=== PATIENT | female | born 1935 | race Caucasian/White ===

== ENCOUNTER → 2017-03-17 | Outpatient (CLI) | payer MEDICARE, OTHER ==
--- NOTE | 2017-03-17 13:12 | RADIOLOGY REPORT (SQ) ---
EXAM DESCRIPTION: SHOULDER RIGHT 2 OR MORE VIEWS COMPLETED DATE/TIME: 03/17/2017 1:04 pm REASON FOR STUDY: PAIN IN RIGHT SHOULDER M25.511 PAIN IN RIGHT SHOULDER COMPARISON: None. NUMBER OF VIEWS: Three views. TECHNIQUE: Internal rotation, external rotation, and Y view images acquired of the right shoulder. LIMITATIONS: None. FINDINGS: MINERALIZATION: Normal. BONES: No acute fracture or dislocation. No worrisome bone lesions. JOINTS: There is soft tissue calcifications around the acromioclavicular joint. VISUALIZED LUNGS AND RIBS: No pneumothorax. No rib fracture. SOFT TISSUES: No radiopaque foreign body. OTHER: No other significant finding. 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 TECHNICAL DOCUMENTATION: JOB ID: [id number] [employer]- All Rights Reserved
== END ==
LOC: OD 12:53
PROVIDERS: ATTEND Physician Assistant
DX: M25.511 Pain in right shoulder (principal)

== ENCOUNTER → 2017-04-01 | Outpatient (CLI) | payer MEDICARE, OTHER ==
--- NOTE | 2017-04-01 14:04 | WOMENS IMAGING REPORT ---
EXAM DESCRIPTION: BONE DENSITY HIP/SPINE COMPLETED DATE/TIME: 04/01/2017 10:20 am REASON FOR STUDY: SCREENING MAMMO; OSTEOPOROSIS Z12.31 ENCNTR SCREEN MAMMOGRAM FOR MALIGNANT NEOPLA SM OF [place]IL[place] M81.0 AGE-RELATED OSTEOPOROSIS W/O CURRENT PATHOLOGICAL FRAC COMPARISON: None. TECHNIQUE: Dual-Energy X-ray Absorptiometry (DEXA) of the AP Spine and Hip. LIMITATIONS: None. FINDINGS: LUMBAR SPINE: The bone mineral density (BMD) measured from L1-L4 in the AP projection correlates with a T-score of 1.5, which is normal as defined by the World Health Organization. HIP: The bone mineral density (BMD) measured in the left hip correlates with a T-score of -0.9 in the femo ral neck, which is normal as defined by the World Health Organization. IMPRESSION: 1. LUMBAR SPINE: Normal 2. HIP: Normal COMMENT: The World Health Organization defines low BMD as follows: T-score: Normal: Greater than -1.0 Osteopenia: Between -1.0 and -2.5 Osteoporosis: Less than -2.5 without fractures Established osteoporosis: Less than -2.5 with fractures In general, you may wish to consider: Diagnosis Treatment Follow-up DEXA Normal BMD Prevention 2-3 years Osteopenia Prevention/Therapy 1-2 years Osteoporosis Therapy Yearly TECHNICAL DOCUMENTATION: JOB ID: [id number]- All Rights Reserved
--- NOTE | 2017-04-02 13:53 | WOMENS IMAGING REPORT ---
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 LIMITATIONS: None. FINDINGS: Findings present which are benign by mammographic criteria. No suspicious masses, calcifi cations or architectural distortion. Pertinent benign findings: Coarse dense benign appearing calcifications bilaterally. Read with the assistance of CAD. .[facility] - R2 Cenova Version 1.3 .[facility] Imaging - R2 Cenova Version 1.3 .[facility] Imaging - R2 Cenova Version 2.4 .[facility] [place] [place] - R2 Cenova Version 2.4 .[facility] - R2 [employer] Mechanic Version 9.2 Benign mammographic findings may include one or more of the following: Smooth masses, popcorn/rim/co arse calcifications, asymmetries, post-procedure changes, and lesions with long-standing stability. IMPRESSION: BENIGN MAMMOGRAPHIC FINDINGS. BIRADS 2 BREAST DENSITY: d. The breasts are extremely dense, which lowers the sensitivity of mammography. BIRAD: 2 BENIGN FINDING(S) RECOMMENDATION: RECOMMENDATION: ROUTINE SCREENING Please continue yearly bilateral screening tomosynthesis in March 2018 COMMENT: The patient has been notified of the results by letter per SA requirements. Additional no tification policies are in place for contacting patient with suspicious or incomplete findings. Quality ID #[id number]: The [employer] recommends an annual screening mammogram for women aged 40 years or over. This facility utilizes a reminder system to ensure that all patients receive reminder letters, and/or direct phone calls for appointments. This includes reminders for routine scr eening mammograms, diagnostic mammograms, or other Breast Imaging Interventions when appropriate. Th is patient will be placed in the appropriate reminder system. The [employer] (ACR) has developed recommendations for screening MRI of the breast s in certain patient populations, to be used in conjunction with mammography. Breast MRI surveillanc e may be appropriate for women with more than 20% lifetime risk of developing breast cancer as deter mined by genetic testing, significant family history of the disease, or history of mantle radiation f or Hodgkins Disease. ACR Practice Guidelines 2008. DBT Technology DBT is a type of tomographic mammography. With conventional mammography, overlapping breast tissue ma y make lesions difficult to detect, even with good compression. DBT uses an x-ray tube that rotates a round the breast, taking images at different angles. These images are then combined to create thin sl ices of the breast that the radiologist can view as a 3D reconstruction. The [employer] unit can perform full-field digital mammograms (2D imaging); or DBT (3D imaging); or both, in a combination mode that quickly performs both the mammogram and the tomosynthesis scan while the breast is still compressed. PQRS 6045F: Fluoroscopic imaging is not utilized for breast tomosynthesis. TECHNICAL DOCUMENTATION: FINDING NUMBER: (1) ASSESSMENT: (1) JOB ID: [id number] [employer]- All Rights Reserved
== END ==
LOC: WI 08:59
PROVIDERS: ATTEND Physician Assistant
DX: Z12.31 Encounter for screening mammogram for malignant neoplasm of breast (principal); M81.0 Age-related osteoporosis without current pathological fracture
CPT/HCPCS: 77063; 77080; G0202; 77067

== ENCOUNTER 2017-04-23 13:52 | Emergency (ER) | payer MEDICARE, OTHER ==
[2017-04-23 14:23] VITALS: BP 153/107
--- NOTE | 2017-04-23 14:30 | ER Document Report ---
ED Neuro Symptoms/Deficit <IVELISSE PACKER - Last Filed: 04/23/17 15:32> - General Mode of Arrival: Ambulatory Information source: Patient TRAVEL OUTSIDE OF THE [place] IN LAST 30 DAYS: No <ARMINMEAGAN - Last Filed: 04/23/17 15:56> - General Chief Complaint: Numbness Stated Complaint: NUMBNESS Time Seen by Provider: 04/23/17 14:18 Notes: Patient is an 81-year-old female who presents to the emergency department today with complaints of "numbness all over". Patient states that she also has numbness around her mouth. Patient states her symptoms have been occurring for the last 1.5 hours. Patient states she had a prior CVA in 1996 and her symptoms today are similar to those. Patient denies any unilateral weakness, difficulty with speech, or urinary symptoms. Patient states she has a slight headache with associated nausea and diarrhea. (MEAGAN FUNEZ) - Related Data Allergies/Adverse Reactions: iodine [Iodine] Allergy (Intermediate, Verified 04/23/17 14:22) RASH Penicillins Allergy (Verified 04/23/17 14:22) hands itching, rash atorvastatin calcium [From Lipitor] Adverse Reaction (Intermediate, Verified 14:22) MUSCLE SPASMS morphine [Morphine] Adverse Reaction (Intermediate, Verified 04/23/17 14:22) FEELS LIKE DYING Home Medications: Current Home Medications Ferrous Sulfate 325 mg PO QHS 04/23/17 [History] Levothyroxine Sodium 25 mcg PO QAM 04/23/17 [History] Past Medical History - General Information source: Patient - Social History Smoking Status: Unknown if Ever Smoked Cigarette use (# per day): No Frequency of alcohol use: None Drug Abuse: None Lives with: Family Family History: Reviewed & Not Pertinent - Past Medical History Cardiac Medical History: Reports: Hx Atrial Fibrillation, Hx Coronary Artery Disease - STENT PLACED X5, Hx Heart Attack - X5, Hx Hypercholesterolemia, Hx Hypertension Pulmonary Medical History: Reports: Hx Pneumonia - 5-6 YEARS AGO, Hx Sleep Apnea Neurological Medical History: Reports: Hx Cerebrovascular Accident Endocrine Medical History: Reports: Hx Diabetes Mellitus Type 2 GI Medical History: Reports: Hx Gastroesophageal Reflux Disease, Hx Hiatal Hernia Musculoskeltal Medical History: Reports Hx Arthritis, Reports Hx Muscle Weakness - cramps Past Surgical History: Reports: Hx Appendectomy, Hx Cardiac Catheterization - stent in circumflex, Hx Cholecystectomy, Hx Herniorrhaphy, Hx Hysterectomy, Hx Orthopedic Surgery - carpal tunnel - Immunizations Immunizations up to date: Yes Hx Diphtheria, Pertussis, Tetanus Vaccination: No - unknown Hx Pneumococcal Vaccination: 08/04/08 <MEAGAN FUNEZ - Last Filed: 04/23/17 15:56> Review of Systems - Review of Systems Constitutional: See HPI, Weakness - generalized EENT: No symptoms reported Cardiovascular: No symptoms reported Respiratory: No symptoms reported Gastrointestinal: See HPI, Diarrhea, Nausea Genitourinary: No symptoms reported Female Genitourinary: No symptoms reported Musculoskeletal: No symptoms reported Skin: No symptoms reported Hematologic/Lymphatic: No symptoms reported Neurological/Psychological: See HPI, Headaches, Numbness - all over <MEAGAN FUNEZ - Last Filed: 04/23/17 15:56> Physical Exam <IVELISSE PACKER - Last Filed: 04/23/17 15:32> - Neurological Neuro grossly intact: Yes Cognition: Normal Orientation: AAOx4 Aldrich Coma Scale Eye Opening: Spontaneous Anthony Coma Scale Verbal: Oriented Anthony Coma Scale Motor: Obeys Commands Aldrich Coma Scale Total: 15 Speech: Normal Cranial nerves: Normal Cerebellar coordination: Normal Motor strength normal: LUE, RUE, LLE, RLE Additional motor exam normals: No: Pronator drift, Weakness Sensory: Normal <MEAGAN FUNEZ - Last Filed: 04/23/17 15:56> - Vital signs Vitals: Pulse Resp BP Pulse Ox 88 18 153/107 H 96 04/23/17 13:54 04/23/17 13:54 04/23/17 13:54 04/23/17 13:54 - Notes Notes: Physical Exam: General: Alert, appears well. HEENT: Normocephalic. Atraumatic. PERRL. Extraocular movements intact. Oropharynx clear. No carotid bruits. Neck: Supple. Non-tender. Respiratory: No respiratory distress. Clear and equal breath sounds bilaterally. Cardiovascular: Irregularly irregular, rate controlled, systolic murmur noted. Abdominal: Normal Inspection. Non-tender. No distension. Normal Bowel Sounds. Back: Non-tender. No deformity or step off. Extremities: Moves all four extremities. Upper extremities: Normal inspection. Normal ROM. Lower extremities: Normal inspection. No edema. Normal ROM. Neurological: Cranial Nerves II-XII grossly intact bilaterally. Finger-to- nose intact. Normal cognition. AAOx4. Normal speech. Psychological: Normal affect. Normal Mood. Skin: Warm. Dry. Normal color. (MEAGAN FUNEZ) Course - Laboratory Result Diagrams: 04/23/17 14:10 04/23/17 14:10 - Diagnostic Test Radiology reviewed: Image reviewed, Reports reviewed - Chest x-ray and CT without acute abnormality. There are chronic microvascular changes. - EKG Interpretation by Me Rhythm: A.Fib - 83, atrial fibrillation with controlled rate. No clear ischemia. QRS of normal duration. <IVELISSE PACKER - Last Filed: 04/23/17 15:32> - Laboratory Result Diagrams: 04/23/17 14:10 04/23/17 14:10 <MEAGAN FUNEZ - Last Filed: 04/23/17 15:56> - Re-evaluation Re-evalutation: 04/23/17 15:12 Patient is in atrial fibrillation. She is anticoagulated with Coumadin but has a subtherapeutic INR. 04/23/17 15:32 Patient states she is feeling fine and anxious to go home. She had had her Coumadin cut back from the normal 7.5 and 10.5 alteration, she will increase back to 10 mg tonight. She does a weekly INR at home and [place] adjust her Coumadin accordingly. Clinically I do not see evidence of stroke. She understands follow-up needs as well as warning signs to watch for. (IVELISSE PACKER) - Vital Signs Vital signs: Temp Pulse Resp BP Pulse Ox 98.5 F 88 18 153/107 H 97 04/23/17 13:58 04/23/17 13:58 04/23/17 14:16 04/23/17 13:58 04/23/17 14:16 - Laboratory Laboratory results interpreted by me: 04/23/17 04/23/17 14:10 14:10 PT 20.4 H Glucose 158 H Discharge <IVELISSE PACKER - Last Filed: 04/23/17 15:32> <MEAGAN FUNEZ - Last Filed: 04/23/17 15:56> - Discharge Clinical Impression: Paresthesia Condition: Good Disposition: HOME, SELF-CARE Additional Instructions: Return for any problem or concern. Take your Coumadin 10.5 mg tonight as scheduled. Contact your physician tomorrow with your INR for further adjustments. The PT INR was 1.64 here today. Scribe Documentation - Scribe Written by Iram:: Iram Alvarez, 04/23/2017 1555 acting as scribe for :: Remy <MEAGAN FUNEZ - Last Filed: 04/23/17 15:56>
[2017-04-23 14:47] LABS: ABSOLUTE EOSINOPHILS # (AUTO) 0.2 10^3/uL (0.0-0.6); ABSOLUTE LYMPHOCYTES (AUTO) 1.6 10^3/uL (0.5-4.7); ABSOLUTE MONOCYTES (AUTO) 0.6 10^3/uL (0.1-1.4); ABSOLUTE NEUT (AUTO) 3.4 10^3/uL (1.7-8.2); BASOPHILS % (AUTO) 0.6 % (0-2); EOSINOPHILS % (AUTO) 3.2 % (0-6); HEMATOCRIT 42.5 % (36.0-47.0); HEMOGLOBIN 14.7 g/dL (12.0-15.5); HGB HCT DIFFERENCE 1.6; LYMPHOCYTES % (AUTO) 27.7 % (13-45); MEAN CORPUSCULAR HEMOGLOBIN 31.9 pg (27.0-33.4); MEAN CORPUSCULAR HGB CONC 34.6 g/dL (32.0-36.0); MEAN CORPUSCULAR VOLUME 92 fl (80-97); MONOCYTES % (AUTO) 10.5 % (3-13); RED CELL DISTRIBUTION WIDTH 13.8 % (11.5-14.0); WHITE BLOOD COUNT 5.9 10^3/uL (4.0-10.5)
[2017-04-23 14:49] LABS: PROTHROMBIN TIME 20.4 SEC (11.4-15.4)
[2017-04-23 14:51] LABS: ALANINE AMINOTRANSFERASE 26 U/L (9-52); ALBUMIN 4.7 g/dL (3.5-5.0); ALKALINE PHOSPHATASE 70 U/L (38-126); ANION GAP 14 (5-19); ASPARTATE AMINO TRANSFERASE 29 U/L (14-36); BILIRUBIN,DIRECT 0.4 mg/dL (0.0-0.4); BILIRUBIN,TOTAL 0.7 mg/dL (0.2-1.3); BLOOD UREA NITROGEN 13 mg/dL (7-20); CALCIUM 9.8 mg/dL (8.4-10.2); CARBON DIOXIDE 29 mmol/L (22-30); CHLORIDE 101 mmol/L (98-107); CREATININE RESULT 0.82 mg/dL (0.52-1.25); GLUCOSE 158 mg/dL (75-110); POTASSIUM 4.1 mmol/L (3.6-5.0); SODIUM 143.5 mmol/L (137-145); TOTAL PROTEIN 7.9 g/dL (6.3-8.2)
--- NOTE | 2017-04-23 14:56 | RADIOLOGY REPORT (SQ) ---
EXAM DESCRIPTION: CT HEAD WITHOUT COMPLETED DATE/TIME: 04/23/2017 2:44 pm REASON FOR STUDY: Headache COMPARISON: March 2016 TECHNIQUE: Axial images acquired through the brain without intravenous contrast. Images reviewed wi th bone, brain and subdural windows. Images stored on PACS. All CT scanners at this facility use dose modulation, iterative reconstruction, and/or weight based d osing when appropriate to reduce radiation dose to as low as reasonably achievable (ALARA). [facility]: Dose Right [facility]: CareDose [facility]: Dose Right [facility]: Teradose 4D [facility]: Exhale Fans RADIATION DOSE: Up-to-date CT equipment and radiation dose reduction techniques were employed. CTDIv ol: 64.6 mGy. DLP: 1163 mGy-cm. mGy. LIMITATIONS: None. FINDINGS: VENTRICLES: Prominent. CEREBRUM: No masses. No hemorrhage. No midline shift. Areas of low density in the white matter mos t likely due to chronic micro-vascular ischemic change. No evidence for acute infarction. CEREBELLUM: No masses. No hemorrhage. No alteration of density. No evidence for acute infarction. EXTRAAXIAL SPACES: Mild age-related involutional change. No fluid collections. No masses. ORBITS AND GLOBE: No intra- or extraconal masses. Normal contour of globe without masses. CALVARIUM: No fracture. PARANASAL SINUSES: No fluid or mucosal thickening. SOFT TISSUES: No mass or hematoma. OTHER: No other significant finding. IMPRESSION: MILD CHRONIC CHANGES OF ATROPHY AND MICROVASCULAR ISCHEMIA. NO ACUTE PROCESS. EVIDENCE OF ACUTE STROKE: NO. TECHNICAL DOCUMENTATION: JOB ID: [id number] Quality ID # [id number]: Final reports with documentation of one or more dose reduction techniques (e.g., Au tomated exposure control, adjustment of the mA and/or kV according to patient size, use of iterative reconstruction technique) 2010 [employer]- All Rights Reserved
--- NOTE | 2017-04-23 14:58 | RADIOLOGY REPORT (SQ) ---
EXAM DESCRIPTION: CHEST SINGLE VIEW COMPLETED DATE/TIME: 04/23/2017 2:45 pm REASON FOR STUDY: weakness COMPARISON: February 2016 EXAM PARAMETERS: NUMBER OF VIEWS: One view. TECHNIQUE: Single frontal radiographic view of the chest acquired. RADIATION DOSE: NA LIMITATIONS: None. FINDINGS: LUNGS AND PLEURA: No opacities, masses or pneumothorax. No pleural effusion. MEDIASTINUM AND HILAR STRUCTURES: No masses. Contour normal. HEART AND VASCULAR STRUCTURES: Heart normal in size. Normal vasculature. BONES: No acute findings. HARDWARE: None in the chest. OTHER: No other significant finding. IMPRESSION: NO ACUTE RADIOGRAPHIC FINDING IN THE CHEST. TECHNICAL DOCUMENTATION: JOB ID: [id number]
[2017-04-23 15:09] LABS: APPEARANCE,URINE CLEAR; BILIRUBIN,URINE NEGATIVE (NEGATIVE); GLUCOSE, URINE NEGATIVE (NEGATIVE); KETONES,URINE NEGATIVE (NEGATIVE); LEUKOCYTE ESTERASE,URINE NEGATIVE (NEGATIVE); NITRITE,URINE NEGATIVE (NEGATIVE); PROTEIN,URINE NEGATIVE (NEGATIVE); URINE SPECIFIC GRAVITY 1.003; UROBILINOGEN,URINE NEGATIVE mg/dL (<2.0)
--- NOTE | 2017-04-23 18:39 | EKG REPORT ---
SEVERITY:- ABNORMAL ECG - ATRIAL FIBRILLATION : Confirmed by: Isaias Joel MD 23-Apr-2017 18:38:43
== END 2017-04-23 16:03 | disposition home or self-care (01) ==
LOC: ER 13:52
DX: R20.0 Anesthesia of skin (principal); R53.1 Weakness; R51 Headache; R11.0 Nausea; R19.7 Diarrhea, unspecified
CPT/HCPCS: 36415; 70450; 71010; 80053; 81001; 83735; 85025; 85610; 93005; 93010; 99285

== ENCOUNTER 2017-09-16 21:21 | Observation (INO) | payer MEDICARE, OTHER ==
[2017-09-16 22:57] LABS: ABSOLUTE EOSINOPHILS # (AUTO) 0.1 10^3/uL (0.0-0.6); ABSOLUTE LYMPHOCYTES (AUTO) 1.7 10^3/uL (0.5-4.7); ABSOLUTE MONOCYTES (AUTO) 0.8 10^3/uL (0.1-1.4); ABSOLUTE NEUT (AUTO) 2.6 10^3/uL (1.7-8.2); BASOPHILS % (AUTO) 0.5 % (0-2); EOSINOPHILS % (AUTO) 2.7 % (0-6); HEMATOCRIT 44.5 % (36.0-47.0); HEMOGLOBIN 15.2 g/dL (12.0-15.5); LYMPHOCYTES % (AUTO) 32.1 % (13-45); MEAN CORPUSCULAR HEMOGLOBIN 31.4 pg (27.0-33.4); MEAN CORPUSCULAR HGB CONC 34.1 g/dL (32.0-36.0); MEAN CORPUSCULAR VOLUME 92 fl (80-97); PLATELET COUNT 208 10^3/uL (150-450); RED BLOOD COUNT 4.84 10^6/uL (3.72-5.28); RED CELL DISTRIBUTION WIDTH 13.2 % (11.5-14.0); SEGMENTED NEUTROPHILS % (AUTO) 49.7 % (42-78); TOTAL CELLS COUNTED % (AUTO) 100 %; WHITE BLOOD COUNT 5.1 10^3/uL (4.0-10.5)
--- NOTE | 2017-09-16 23:04 | ER Document Report ---
ED General - General Chief Complaint: Coumadin double dose Stated Complaint: ACCIDENTAL MEDICATION OVERDOSE Time Seen by Provider: 09/16/17 22:23 Notes: Patient is an 81-year-old female presents with complaint of Coumadin overdose. This was accidental. Patient says she usually puts all her 19 meds in one bottle. She says that she actually took her Coumadin bottle and took those pills instead of her nighttime meds. I spoke with the daughter and the patient length. Seems very unclear as to when this happened. Patient is unsure what happened over the weekend if it happens yesterday. Patient is also unsure if she possibly just took 9 pills were took more than that being that she cannot remember if this bottle had more pills in it. She denies any bleeding. She denies any pain. She is able check her INR at home and it was 7 today. She has no other complaints at this time. TRAVEL OUTSIDE OF THE [place] IN LAST 30 DAYS: No - Related Data Allergies/Adverse Reactions: iodine [Iodine] Allergy (Intermediate, Verified 04/23/17 14:22) RASH Penicillins Allergy (Verified 04/23/17 14:22) hands itching, rash atorvastatin calcium [From Lipitor] Adverse Reaction (Intermediate, Verified 14:22) MUSCLE SPASMS morphine [Morphine] Adverse Reaction (Intermediate, Verified 04/23/17 14:22) FEELS LIKE DYING Past Medical History - Social History Smoking Status: Never Smoker Frequency of alcohol use: None Drug Abuse: None Family History: Reviewed & Not Pertinent - Past Medical History Cardiac Medical History: Reports: Hx Atrial Fibrillation, Hx Coronary Artery Disease - STENT PLACED X5, Hx Heart Attack - X5, Hx Hypercholesterolemia, Hx Hypertension Pulmonary Medical History: Reports: Hx Pneumonia - 5-6 YEARS AGO, Hx Sleep Apnea Neurological Medical History: Reports: Hx Cerebrovascular Accident Endocrine Medical History: Reports: Hx Diabetes Mellitus Type 2 Renal/ Medical History: Denies: Hx Peritoneal Dialysis GI Medical History: Reports: Hx Gastroesophageal Reflux Disease, Hx Hiatal Hernia. Denies: Hx Pancreatitis Musculoskeltal Medical History: Reports Hx Arthritis, Reports Hx Muscle Weakness - cramps Past Surgical History: Reports: Hx Abdominal Surgery - hernia, Hx Appendectomy, Hx Cardiac Catheterization - stent in circumflex, Hx Cholecystectomy, Hx Herniorrhaphy, Hx Hysterectomy, Hx Orthopedic Surgery - carpal tunnel - Immunizations Immunizations up to date: Yes Hx Diphtheria, Pertussis, Tetanus Vaccination: No - unknown Hx Pneumococcal Vaccination: 08/04/08 Review of Systems - Review of Systems Notes: My Normal Review Basic REVIEW OF SYSTEMS: CONSTITUTIONAL : Denies fever, chills, or sweats. Denies recent illness. EENT: Denies eye, ear, throat, or mouth pain or symptoms. Denies nasal or sinus congestion. CARDIOVASCULAR: Denies chest pain. RESPIRATORY: Denies cough, cold, or chest congestion. Denies shortness of breath, difficulty breathing, or wheezing. GASTROINTESTINAL: Denies abdominal pain. Denies nausea, vomiting, or diarrhea. Denies constipation. Last BM: GENITOURINARY: Denies difficulty urinating, painful urination, burning, frequency, or blood in urine. FEMALE GENITOURINARY: Denies vaginal bleeding MUSCULOSKELETAL: Denies neck or back pain or joint pain or swelling. SKIN: Denies rash or skin lesions. NEUROLOGICAL: Denies altered mental status or loss of consciousness. Denies headache. Denies weakness or paralysis or loss of use of either side. Denies problems with gait or speech. Denies sensory or motor loss. ALL OTHER SYSTEMS REVIEWED AND NEGATIVE. Physical Exam - Vital signs Vitals: Temp Pulse Resp BP Pulse Ox 98.1 F 80 22 H 186/72 H 93 09/16/17 22:08 09/16/17 22:08 09/16/17 22:08 09/16/17 22:08 09/16/17 22:08 - Notes Notes: General Appearance: Well nourished, alert, cooperative, no acute distress, no obvious discomfort. Well-appearing. Vitals: reviewed, See vital signs table. Head: no swelling or tenderness to the head Eyes: PERRL, EOMI, Conjuctiva clear Mouth: No decreasd moisture Neck: Supple, no neck tenderness, No thyromegaly Lungs: No wheezing, No rales, No rhonci, No accessory muscle use, good air exchange bilaterally. Heart: Normal rate, Regular rythm, No murmur, no rub Abdomen: Normal BS, soft, No rigidity, No abdominal tenderness, No guarding, no rebound, no abdominal masses, no organomegaly Extremities: strength 5/5 in all extremities, good pulses in all extremities, no swelling or tenderness in the extremities, no edema. Skin: warm, dry, appropriate color, no rash Neuro: speech clear, oriented x 3, normal affect, responds appropriately to questions. Renal nerves II through XII are intact. Patient moves all extremities without difficulty. Course - Re-evaluation Re-evalutation: 09/17/17 00:58 It is unclear exactly when the patient took Coumadin and how much she took. If she did take closer 20 pills last 24 hours and her current INR is not reflective of what she took and he could go much higher. Due to the uncertainty of how much she took and when she took it I think is appropriate to admit the patient for observation. I did speak with Dr. Ponce who agrees to admit the patient. Dictation of this chart was performed using voice recognition software; therefore, there may be some unintended grammatical errors. - Vital Signs Vital signs: Temp Pulse Resp BP Pulse Ox 98.1 F 80 18 150/61 H 93 09/16/17 22:08 09/16/17 22:08 09/17/17 00:02 09/17/17 00:02 09/17/17 00:02 - Laboratory Result Diagrams: 09/16/17 22:42 09/16/17 22:42 Laboratory results interpreted by me: 09/16/17 09/16/17 09/16/17 22:42 22:42 22:42 Monocytes % 15.0 H PT 46.0 H APTT 48.1 H Chloride 96 L Carbon Dioxide 32 H Glucose 226 H Salicylates < 1.0 L Acetaminophen < 10 L - EKG Interpretation by Me Additional EKG results interpreted by me: 09/16/17 23:06 EKG is reviewed and interpreted by me. EKG shows atrial fibrillation with a rate of [address] segment elevation or depression. No ischemic T-wave inversions. There is duration QTc intervals are within normal range. Old EKG for comparison is from April 23, 2017. Discharge - Discharge Clinical Impression: Overdose of coumadin Qualifiers: Encounter type: initial encounter Injury intent: accidental or unintentional Qualified Code(s): T45.511A - Poisoning by anticoagulants, accidental ( unintentional), initial encounter Condition: Stable Disposition: ADMITTED OBSERVATION Admitting Provider: [facility] Unit Admitted: Medical Floor
[2017-09-16 23:12] LABS: INTERNATIONAL RATION (INR) 4.68; PARTIAL THROMBOPLASTIN TIME 48.1 SEC (23.5-35.8)
[2017-09-16 23:33] LABS: ALANINE AMINOTRANSFERASE 25 U/L (9-52); ALBUMIN 4.6 g/dL (3.5-5.0); ALKALINE PHOSPHATASE 97 U/L (38-126); ANION GAP 10 (5-19); ASPARTATE AMINO TRANSFERASE 26 U/L (14-36); BILIRUBIN,DIRECT 0.1 mg/dL (0.0-0.4); BILIRUBIN,TOTAL 0.4 mg/dL (0.2-1.3); BLOOD UREA NITROGEN 15 mg/dL (7-20); CALCIUM 9.8 mg/dL (8.4-10.2); CARBON DIOXIDE 32 mmol/L (22-30); CHLORIDE 96 mmol/L (98-107); GLUCOSE 226 mg/dL (75-110); POTASSIUM 4.1 mmol/L (3.6-5.0); SODIUM 138.4 mmol/L (137-145); TOTAL PROTEIN 7.1 g/dL (6.3-8.2)
[2017-09-16 23:36] LABS: ACETAMINOPHEN < 10 ug/mL (10-30); ALCOHOL < 10 mg/dL (NONE DETECTED); SALICYLATE < 1.0 mg/dL (2.0-20.0)
[2017-09-17 01:18] LABS: APPEARANCE,URINE CLEAR; BILIRUBIN,URINE NEGATIVE (NEGATIVE); COLOR,URINE COLORLESS; GLUCOSE, URINE NEGATIVE (NEGATIVE); KETONES,URINE NEGATIVE (NEGATIVE); LEUKOCYTE ESTERASE,URINE NEGATIVE (NEGATIVE); NITRITE,URINE NEGATIVE (NEGATIVE); PROTEIN,URINE NEGATIVE (NEGATIVE); URINE SPECIFIC GRAVITY 1.002; UROBILINOGEN,URINE NEGATIVE mg/dL (<2.0)
[2017-09-17 01:31] LABS: URINE AMPHETAMINES SCREEN NEGATIVE; URINE BARBITURATES SCREEN NEGATIVE; URINE BENZODIAZEPINES SCREEN NEGATIVE; URINE COCAINE SCREEN NEGATIVE; URINE MARIJUANA (THC) SCREEN NEGATIVE; URINE METHADONE SCREEN NEGATIVE; URINE PHENCYCLIDINE SCREEN NEGATIVE
[2017-09-17] MEDS ORDERED: ACETAMINOPHEN 325 MG TABLET PO PRN (08:33)
[2017-09-17] MEDS ORDERED: DEXTROSE 40% GEL 15 GM TUBE PO PRN ×2 (08:34)
[2017-09-17] MEDS ORDERED: DEXTROSE 50%-WATER 25 GM/50 ML DISP.SYRIN IV PRN ×2 (08:34)
[2017-09-17] MEDS ORDERED: GLUCAGON,HUMAN RECOMB 1 MG INJ IM PRN (08:34)
--- NOTE | 2017-09-17 09:29 | EKG REPORT ---
SEVERITY:- ABNORMAL ECG - CONSIDER A FIB, IRREGULAR RATE 60-93 CONSIDER ANTEROSEPTAL INFARCT : Confirmed by: Aaron Stone 17-Sep-2017 09:28:47
[2017-09-17] MEDS: AMLODIPINE BESYLATE 5 MG TABLET PO SCH (09:30)
[2017-09-17] MEDS ORDERED: FATTY ACIDS PO SCH (10:00)
[2017-09-17] MEDS ORDERED: [UNRECOGNIZED DRUG - OTHER] PO SCH (10:00)
[2017-09-17] MEDS ORDERED: FISH OIL PO SCH (10:00)
[2017-09-17] MEDS ORDERED: FUROSEMIDE 40 MG TABLET PO SCH (10:00)
[2017-09-17] MEDS ORDERED: POTASSIUM CHLORIDE 10 MEQ PO SCH (10:00)
[2017-09-17] MEDS ORDERED: RED YEAST RICE 600 MG PO SCH ×2 (10:00)
[2017-09-17] MEDS ORDERED: OMEGA PO SCH (10:00)
[2017-09-17 10:31] LABS: INTERNATIONAL RATION (INR) 4.81
[2017-09-17] MEDS: OMEGA-3 ACID ETHYL ESTERS 1 GM CAPSULE PO SCH ×2 (11:45→23:14)
[2017-09-17] MEDS: INSULIN LISPRO 100 UNIT/ML 3 ML VIAL SUBCUT PRN ×2 (11:45→19:00)
[2017-09-17] MEDS: POTASSIUM CHLORIDE 10 MEQ TABLET.SA PO SCH ×2 (11:46→23:14)
--- NOTE | 2017-09-17 12:21 | PDOC H&P ---
History of Present Illness Admission Date/PCP: 09/17/17 08:33 ZACKERY NEELY MD Patient complains of: Accidental drug overdose with the Coumadin History of Present Illness: ARNAUD HEALY is a 81 year old female This is a 81-year-old females with a significant history of coronary artery disease history of the chronic A. fib hypertension's hyperlipidemia and multiple other comorbidity currently taking the Coumadin because of the A. fib and currently follow with the cardiology for the INR in the recently noticed that the patient's in the last week and especially inserted is under not sure patient accidentally took more Coumadin instead of taking the other medications may be more than 6 or 7 pills but not exactly and no how muchIn patients yesterday check the INR was 7 at home and the patient was concerned and came to the emergency department last night's with INR was between 4 and 5 and patient otherwise did not have any symptoms Initial workup and a CT of the head was all negative and the ER physicians concerns about that possible patients took the medicines yesterday but patients pretty sure and the daughter pretty sure not yesterday was taking either Friday or Friday but ER physician concern about that if the patient's take the medicine yesterday then may be the overshoot the INR tomorrow and decided to admit in the hospital for further observations Patient's currently denied any chest pain denied any shortness of the breath no nausea no vomiting Patient's daughter is on the bedside and discussed with the patient's medications usually patient have that pharmacy filled all the prescriptions with that medications reconciliations but the patient's only thing Coumadin was not on that reconciliation and patients took this Coumadin and a different bottle and by accident he took the medications Past Medical History Cardiac Medical History: Reports: Atrial Fibrillation, Coronary Artery Disease - STENT PLACED X5, Myocardial Infarction - X5, Hyperlipidema, Hypertension Pulmonary Medical History: Reports: Pneumonia - 5-6 YEARS AGO, Sleep Apnea Endocrine Medical History: Reports: Diabetes Mellitus Type 2 GI Medical History: Reports: Gastroesophageal Reflux Disease, Hiatal Hernia Musculoskeltal Medical History: Reports: Arthritis Past Surgical History Past Surgical History: Reports: Appendectomy, Cardiac Catheterization - stent in circumflex, Cholecystectomy, Herniorrhaphy, Hysterectomy, Orthopedic Surgery - carpal tunnel Denies: Amputation Social History Smoking Status: Never Smoker Frequency of Alcohol Use: None Hx Recreational Drug Use: No Hx Prescription Drug Abuse: No Family History Family History: Reviewed & Not Pertinent Parental Family History Reviewed: Yes Children Family History Reviewed: Yes Sibling(s) Family History Reviewed.: Yes Medication/Allergy Home Medications: Amlodipine Besylate 5 mg PO DAILY 07/01/15 Furosemide [Lasix 40 mg Tablet] 40 mg PO DAILY 07/01/15 Gabapentin 400 mg PO Q8 07/01/15 Linagliptin [Tradjenta] 5 mg PO WBRKFST 07/01/15 [place]-3 Fatty Acids/Fish Oil [[place] 3 Fish Oil Softgel] 1,000 mg PO BID Potassium Chloride [Klor-Con] 10 meq PO BID 07/01/15 Red Yeast Rice 600 mg PO BID 07/01/15 Clopidogrel Bisulfate [Clopidogrel] 75 mg PO DAILY 02/06/16 Pantoprazole Sodium 40 mg PO QAM 02/06/16 Ferrous Sulfate 325 mg PO QHS 04/23/17 Levothyroxine Sodium 25 mcg PO Q6AM 04/23/17 Insulin Aspart Prot/Insuln Asp [Novolog Mix 70-30 Flexpen Syrn] 10 units SQ QAM 09/17/17 Insulin Aspart Prot/Insuln Asp [Novolog Mix 70-30 Flexpen Syrn] 20 units SQ QPM 09/17/17 Rosuvastatin Calcium 10 mg PO QHS 09/17/17 Warfarin Sodium [Coumadin 5 mg Tablet] 5 mg PO TUTH@1000 18 Warfarin Sodium [Coumadin] 10 mg PO SUMOWEFRSA@1000 18 Allergies/Adverse Reactions: iodine [Iodine] Allergy (Intermediate, Verified 04/23/17 14:22) RASH Penicillins Allergy (Verified 04/23/17 14:22) hands itching, rash atorvastatin calcium [From Lipitor] Adverse Reaction (Intermediate, Verified 14:22) MUSCLE SPASMS morphine [Morphine] Adverse Reaction (Intermediate, Verified 04/23/17 14:22) FEELS LIKE DYING Review of Systems Constitutional: ABSENT: chills, fever(s), headache(s), weight gain, weight loss Eyes: ABSENT: visual disturbances Ears: ABSENT: hearing changes Cardiovascular: ABSENT: chest pain, dyspnea on exertion, edema, orthropnea, palpitations Respiratory: ABSENT: cough, hemoptysis Gastrointestinal: ABSENT: abdominal pain, constipation, diarrhea, hematemesis, hematochezia, nausea, vomiting Genitourinary: ABSENT: dysuria, hematuria Musculoskeletal: ABSENT: joint swelling Integumentary: ABSENT: rash, wounds Neurological: ABSENT: abnormal gait, abnormal speech, confusion, dizziness, focal weakness, syncope Psychiatric: ABSENT: anxiety, depression, homidical ideation, suicidal ideation Endocrine: ABSENT: cold intolerance, heat intolerance, menstrual abnormalities, polydipsia, polyuria Hematologic/Lymphatic: ABSENT: easy bleeding, easy bruising, lymphadenopathy Physical Exam Vital Signs: Temp Pulse Resp BP Pulse Ox 97.5 F 80 16 137/58 H 95 09/17/17 03:30 09/16/17 22:08 09/17/17 08:18 09/17/17 07:01 09/17/17 07:01 General appearance: PRESENT: no acute distress, well-developed, well-nourished Head exam: PRESENT: atraumatic, normocephalic Eye exam: PRESENT: conjunctiva pink, EOMI, PERRLA. ABSENT: scleral icterus Ear exam: PRESENT: normal external ear exam Mouth exam: PRESENT: moist, tongue midline Neck exam: PRESENT: full ROM. ABSENT: carotid bruit, JVD, lymphadenopathy, thyromegaly Respiratory exam: PRESENT: clear to auscultation [place] Cardiovascular exam: PRESENT: RRR. ABSENT: diastolic murmur, rubs, systolic murmur Pulses: PRESENT: normal dorsalis pedis pul, +2 pedal pulses bilateral Vascular exam: PRESENT: normal capillary refill GI/Abdominal exam: PRESENT: normal bowel sounds, soft. ABSENT: distended, guarding, mass, organolmegaly, rebound, tenderness Rectal exam: PRESENT: deferred Extremities exam: ABSENT: full ROM, left AKA, right AKA, left BKA, right BKA, calf tenderness, joint swelling, pedal edema, tenderness, other Musculoskeletal exam: ABSENT: ambulatory, deformity, dislocation, full ROM, normal inspection, tenderness, other Neurological exam: PRESENT: alert, awake, oriented to person, oriented to place , oriented to time, oriented to situation, CN II-XII grossly intact. ABSENT: motor sensory deficit Psychiatric exam: PRESENT: appropriate affect, normal mood. ABSENT: homicidal ideation, suicidal ideation Skin exam: PRESENT: dry, intact, warm. ABSENT: cyanosis, rash Assessment & Plan - Diagnosis (1) Overdose of coumadin Qualifiers: Encounter type: initial encounter Injury intent: accidental or unintentional Qualified Code(s): T45.511A - Poisoning by anticoagulants, accidental (unintentional), initial encounter Is this a current diagnosis for this admission?: Yes Plan: While patient and the daughter was concerned that was medication was taking in the Friday and Friday not yesterday and patient INR is only 4.5 so I do not think so patients probably overshoot the medications but is almost more than 3 days will still monitor for next 24 hours repeat the INR today again and currently hold the Coumadin and discussed with the patient and the nurses to increase the more green vegetables Does not have any active bleeding or no other symptoms we hold the vitamin K (2) Chronic atrial fibrillation Is this a current diagnosis for this admission?: Yes Plan: stable hold coumadin (3) Congestive heart failure Qualifiers: Heart failure type: combined systolic and diastolic Heart failure chronicity: chronic Qualified Code(s): I50.42 - Chronic combined systolic ( congestive) and diastolic (congestive) heart failure Is this a current diagnosis for this admission?: Yes Plan: stable (4) Type 2 diabetes mellitus Qualifiers: Diabetes mellitus complication status: with unspecified complications Is this a current diagnosis for this admission?: Yes Plan: stable (5) Hyperlipidemia Qualifiers: Hyperlipidemia type: other hyperlipidemia Qualified Code(s): E78.4 - Other hyperlipidemia Is this a current diagnosis for this admission?: Yes Plan: stable (6) Hypertension Qualifiers: Hypertension type: essential hypertension Qualified Code(s): I10 - Essential (primary) hypertension Is this a current diagnosis for this admission?: Yes Plan: stable (7) Coronary artery disease Qualifiers: Coronary Disease-Associated Artery/Lesion type: unspecified vessel or lesion type Is this a current diagnosis for this admission?: Yes Plan: pt see also kaitlyn cardilogy - Time Time Spent: 30 to 50 Minutes Medications reviewed and adjusted accordingly: Yes Anticipated discharge: Home Within: within 24 hours, Other - Inpatient Certification Based on my medical assessment, after consideration of the patient's comorbidities, presenting symptoms, or acuity I expect that the services needed warrant INPATIENT care.: Yes I certify that my determination is in accordance with my understanding of Medicare's requirements for reasonable and necessary INPATIENT services [42 CFR 412.3e].: Yes Medical Necessity: Need Close Monitoring Due to Risk of Patient Decompensation 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
[2017-09-17] MEDS ORDERED: HUM INSULIN NPH/REG INSULIN HM 100 UNIT/1 ML 3 ML SUBCUT SCH (18:00)
[2017-09-17] MEDS ORDERED: ATORVASTATIN CALCIUM 20 MG TABLET PO SCH (22:00)
[2017-09-17] MEDS ORDERED: (PENDING PHARMACY ID) (Rosuvastatin Calcium [Rosuvastatin Calcium] 10 MG) PO SCH (22:00)
[2017-09-17] MEDS ORDERED: FERROUS SULFATE 325 MG TABLET PO SCH (22:00)
[2017-09-17] MEDS ORDERED: GABAPENTIN 400 MG CAPSULE ONE (23:57)
[2017-09-17] MEDS ORDERED: ATORVASTATIN CALCIUM 20 MG TABLET ONE (23:57)
[2017-09-18] MEDS: GABAPENTIN 400 MG CAPSULE PO SCH ×2 (00:06→05:59)
[2017-09-18] MEDS ORDERED: GABAPENTIN 400 MG CAPSULE ONE (05:47)
[2017-09-18] MEDS ORDERED: LEVOTHYROXINE SODIUM 0.025 MG TABLET PO SCH (06:00)
[2017-09-18] MEDS ORDERED: LANSOPRAZOLE 30 MG TAB.RAP.DR PO SCH (06:00)
[2017-09-18] MEDS ORDERED: HUM INSULIN NPH/REG INSULIN HM 100 UNIT/1 ML 3 ML SUBCUT SCH (08:00)
[2017-09-18] MEDS ORDERED: SITAGLIPTIN PHOSPHATE 50 MG TABLET PO SCH (08:00)
[2017-09-18] MEDS ORDERED: (PENDING PHARMACY ID) (Linagliptin [Tradjenta] 5 MG) PO SCH (08:00)
[2017-09-18 08:16] LABS: ABSOLUTE EOSINOPHILS # (AUTO) 0.1 10^3/uL (0.0-0.6); ABSOLUTE LYMPHOCYTES (AUTO) 1.4 10^3/uL (0.5-4.7); ABSOLUTE MONOCYTES (AUTO) 0.7 10^3/uL (0.1-1.4); ABSOLUTE NEUT (AUTO) 2.5 10^3/uL (1.7-8.2); BASOPHILS % (AUTO) 0.8 % (0-2); EOSINOPHILS % (AUTO) 2.7 % (0-6); HEMATOCRIT 44.2 % (36.0-47.0); HEMOGLOBIN 15.1 g/dL (12.0-15.5); LYMPHOCYTES % (AUTO) 29.7 % (13-45); MEAN CORPUSCULAR HEMOGLOBIN 31.1 pg (27.0-33.4); MEAN CORPUSCULAR HGB CONC 34.2 g/dL (32.0-36.0); MEAN CORPUSCULAR VOLUME 91 fl (80-97); PLATELET COUNT 185 10^3/uL (150-450); RED BLOOD COUNT 4.86 10^6/uL (3.72-5.28); RED CELL DISTRIBUTION WIDTH 12.9 % (11.5-14.0); SEGMENTED NEUTROPHILS % (AUTO) 52.8 % (42-78); TOTAL CELLS COUNTED % (AUTO) 100 %; WHITE BLOOD COUNT 4.7 10^3/uL (4.0-10.5)
[2017-09-18 08:23] LABS: INTERNATIONAL RATION (INR) 3.25; PROTHROMBIN TIME 34.7 SEC (11.4-15.4)
[2017-09-18 08:24] LABS: PARTIAL THROMBOPLASTIN TIME 41.9 SEC (23.5-35.8)
[2017-09-18] MEDS: INSULIN LISPRO 100 UNIT/ML 3 ML VIAL SUBCUT PRN (08:35)
[2017-09-18 08:40] LABS: ANION GAP 9 (5-19); BLOOD UREA NITROGEN 11 mg/dL (7-20); CALCIUM 9.4 mg/dL (8.4-10.2); CARBON DIOXIDE 28 mmol/L (22-30); CHLORIDE 102 mmol/L (98-107); GLUCOSE 177 mg/dL (75-110); MAGNESIUM 1.9 mg/dL (1.6-2.3); SODIUM 139.2 mmol/L (137-145)
[2017-09-18] MEDS ORDERED: ACETAMINOPHEN 325 MG TABLET PO PRN (09:00)
[2017-09-18] MEDS: POTASSIUM CHLORIDE 10 MEQ TABLET.SA PO SCH (10:20)
[2017-09-18] MEDS: AMLODIPINE BESYLATE 5 MG TABLET PO SCH (10:20)
[2017-09-18] MEDS: OMEGA-3 ACID ETHYL ESTERS 1 GM CAPSULE PO SCH (10:20)
[2017-09-18 12:08] VITALS: BP 118/63
--- NOTE | 2017-09-18 12:19 | PDOC DISCHARGE SUMMARY ---
General - Admit/Disc Date/PCP Admission Date/Primary Care Provider: 09/17/17 01:15 ZACKERY NEELY MD Discharge Date: 09/18/17 - Discharge Diagnosis (1) Overdose of coumadin Is this a current diagnosis for this admission?: Yes Summary: Currently INR is 3.25 discussed with the patient's to recheck again tomorrow while patient in a home machine and have the Coumadin level below 3 and restart the Coumadin and follow with the patient's cardiology for further instructions about the dose (2) Chronic atrial fibrillation Is this a current diagnosis for this admission?: Yes Summary: Really well under control INR is still therapeutic range (3) Congestive heart failure Is this a current diagnosis for this admission?: Yes Summary: Continues to current medications (4) Type 2 diabetes mellitus Is this a current diagnosis for this admission?: Yes Summary: Currently stable (5) Hyperlipidemia Is this a current diagnosis for this admission?: Yes Summary: Continues to current medications (6) Hypertension Is this a current diagnosis for this admission?: Yes Summary: stable (7) Coronary artery disease Is this a current diagnosis for this admission?: Yes Summary[facility] Resuscitation Status: Full Code Discharge Diet: Diabetic Discharge Activity: Activity As Tolerated Home Medications: Amlodipine Besylate 5 mg PO DAILY 07/01/15 Furosemide [Lasix 40 mg Tablet] 40 mg PO DAILY 07/01/15 Gabapentin 400 mg PO Q8 07/01/15 Linagliptin [Tradjenta] 5 mg PO WBRKFST 07/01/15 [place]-3 Fatty Acids/Fish Oil [[place] 3 Fish Oil Softgel] 1,000 mg PO BID Potassium Chloride [Klor-Con] 10 meq PO BID 07/01/15 Red Yeast Rice 600 mg PO BID 07/01/15 Clopidogrel Bisulfate [Clopidogrel] 75 mg PO DAILY 02/06/16 Pantoprazole Sodium 40 mg PO QAM 02/06/16 Ferrous Sulfate 325 mg PO QHS 04/23/17 Levothyroxine Sodium 25 mcg PO Q6AM 04/23/17 Insulin Aspart Prot/Insuln Asp [Novolog Mix 70-30 Flexpen Syrn] 10 units SQ QAM 09/17/17 Insulin Aspart Prot/Insuln Asp [Novolog Mix 70-30 Flexpen Syrn] 20 units SQ QPM 09/17/17 Rosuvastatin Calcium 10 mg PO QHS 09/17/17 History of Present Illness History of Present Illness: ARNAUD HEALY is a 81 year old female This is a 81-year-old females with a significant history of coronary artery disease history of the chronic A. fib hypertension's hyperlipidemia and multiple other comorbidity currently taking the Coumadin because of the A. fib and currently follow with the cardiology for the INR in the recently noticed that the patient's in the last week and especially inserted is under not sure patient accidentally took more Coumadin instead of taking the other medications may be more than 6 or 7 pills but not exactly and no how muchIn patients yesterday check the INR was 7 at home and the patient was concerned and came to the emergency department last night's with INR was between 4 and 5 and patient otherwise did not have any symptoms Initial workup and a CT of the head was all negative and the ER physicians concerns about that possible patients took the medicines yesterday but patients pretty sure and the daughter pretty sure not yesterday was taking either Friday or Friday but ER physician concern about that if the patient's take the medicine yesterday then may be the overshoot the INR tomorrow and decided to admit in the hospital for further observations Patient's currently denied any chest pain denied any shortness of the breath no nausea no vomiting Patient's daughter is on the bedside and discussed with the patient's medications usually patient have that pharmacy filled all the prescriptions with that medications reconciliations but the patient's only thing Coumadin was not on that reconciliation and patients took this Coumadin and a different bottle and by accident he took the medications Hospital Course Hospital Course: This is a 3-year-old females with unsure about the Coumadin dose some overdose take it in the last weekends and patient INR was checked at home was 7 came to the ER was 4.5 with concern about the overdose of the Coumadin patient was admitted for observations and the patient's Coumadin level is running 3.25 on the discharge Since all other medical problem was stable's Otherwise, no significant any complaints and denied any chest pain denied any shortness of the breath Patients all blood work including the CT of the head was all negative Discussed with the patient and the daughter about the proper managed with the medications Follow with the tomorrow with the home machine to check the Coumadin and called the cardiology for further instruction about the further dosing If a level is more than 3 continues to hold the Coumadin Following office in 1 week Physical Exam Vital Signs: Temp Pulse Resp BP Pulse Ox 97.5 F 70 17 118/63 98 09/18/17 12:10 09/18/17 12:10 09/18/17 12:10 09/18/17 12:10 09/18/17 12:10 Intake & Output 09/17/17 09/18/17 09/19/17 06:59 06:59 06:59 Intake Total 840 400 Output Total 600 Balance -600 840 400 Weight 76.1 kg General appearance: PRESENT: no acute distress, well-developed, well-nourished Head exam: PRESENT: atraumatic, normocephalic Eye exam: PRESENT: conjunctiva pink, EOMI, PERRLA. ABSENT: scleral icterus Ear exam: PRESENT: normal external ear exam Mouth exam: PRESENT: moist, tongue midline Neck exam: PRESENT: full ROM. ABSENT: carotid bruit, JVD, lymphadenopathy, thyromegaly Respiratory exam: PRESENT: clear to auscultation [place] Cardiovascular exam: PRESENT: RRR. ABSENT: diastolic murmur, rubs, systolic murmur Pulses: PRESENT: normal dorsalis pedis pul, +2 pedal pulses bilateral Vascular exam: PRESENT: normal capillary refill GI/Abdominal exam: PRESENT: normal bowel sounds, soft. ABSENT: distended, guarding, mass, organolmegaly, rebound, tenderness Rectal exam: PRESENT: deferred Extremities exam: ABSENT: full ROM, left AKA, right AKA, left BKA, right BKA, calf tenderness, joint swelling, pedal edema, tenderness, other Musculoskeletal exam: ABSENT: ambulatory, deformity, dislocation, full ROM, normal inspection, tenderness, other Neurological exam: PRESENT: alert, awake, oriented to person, oriented to place , oriented to time, oriented to situation, CN II-XII grossly intact. ABSENT: motor sensory deficit Psychiatric exam: PRESENT: appropriate affect, normal mood. ABSENT: homicidal ideation, suicidal ideation Skin exam: PRESENT: dry, intact, warm. ABSENT: cyanosis, rash Results Laboratory Results: 09/18/17 07:51 09/18/17 07:51 09/18/17 09/18/17 07:51 07:51 WBC 4.7 RBC 4.86 Hgb 15.1 Hct 44.2 MCV 91 MCH 31.1 MCHC 34.2 RDW 12.9 Plt Count 185 Seg Neutrophils % 52.8 Lymphocytes % 29.7 Monocytes % 14.0 H Eosinophils % 2.7 Basophils % 0.8 Absolute Neutrophils 2.5 Absolute Lymphocytes 1.4 Absolute Monocytes 0.7 Absolute Eosinophils 0.1 Absolute Basophils 0.0 Sodium 139.2 Potassium 4.0 Chloride 102 Carbon Dioxide 28 Anion Gap 9 BUN 11 Creatinine 0.72 Est GFR ( Amer) > 60 Est GFR (Non-Af Amer) > 60 Glucose 177 H Calcium 9.4 Magnesium 1.9 Plan Time Spent: Greater than 30 Minutes - Patient's discharge home with the stable conditions with no other changes except the Coumadin dose is instructed
== END 2017-09-18 12:30 | disposition home or self-care (01) ==
LOC: ER 21:21 → EH 09-17 01:15 → INTOOBSV 09-17 08:33 → OBSVTOIN 09-17 08:33 → 2N 09-17 18:28
PROVIDERS: ADMIT Family Medicine; ATTEND Family Medicine
DX: T45.511A Poisoning by anticoagulants, accidental (unintentional), initial encounter (principal); I48.2 Chronic atrial fibrillation; I11.0 Hypertensive heart disease with heart failure; I50.42 Chronic combined systolic (congestive) and diastolic (congestive) heart failure; E78.4 Other hyperlipidemia; E11.9 Type 2 diabetes mellitus without complications; I25.10 Atherosclerotic heart disease of native coronary artery without angina pectoris; K21.9 Gastro-esophageal reflux disease without esophagitis; I25.2 Old myocardial infarction; Z79.01 Long term (current) use of anticoagulants; Z79.899 Other long term (current) drug therapy; Z95.5 Presence of coronary angioplasty implant and graft; Z90.49 Acquired absence of other specified parts of digestive tract; Z79.4 Long term (current) use of insulin; Z86.73 Personal history of transient ischemic attack (TIA), and cerebral infarction without residual deficits
CPT/HCPCS: 93005; 99285; 36415 ×3; 87086; 82962 ×2; 80307 ×4; 83735; 85025 ×2; 85610 ×3; 85730 ×2; 80048; 80053; 81001; 93010; A9270 ×14; J1815

== ENCOUNTER 2017-12-05 09:36 | Emergency (ER) | payer MEDICARE, OTHER ==
[2017-12-05] MEDS ORDERED: ASPIRIN 81 MG TABLET, CHEWABLE PO ONE (09:56)
[2017-12-05 10:06] LABS: ABSOLUTE BASOPHILS # (AUTO) 0.1 10^3/uL (0.0-0.2); ABSOLUTE EOSINOPHILS # (AUTO) 0.1 10^3/uL (0.0-0.6); ABSOLUTE LYMPHOCYTES (AUTO) 1.1 10^3/uL (0.5-4.7); ABSOLUTE MONOCYTES (AUTO) 0.7 10^3/uL (0.1-1.4); ABSOLUTE NEUT (AUTO) 6.3 10^3/uL (1.7-8.2); BASOPHILS % (AUTO) 0.6 % (0-2); EOSINOPHILS % (AUTO) 1.1 % (0-6); HEMATOCRIT 42.6 % (36.0-47.0); HEMOGLOBIN 14.5 g/dL (12.0-15.5); LYMPHOCYTES % (AUTO) 13.6 % (13-45); MEAN CORPUSCULAR HEMOGLOBIN 31.4 pg (27.0-33.4); MEAN CORPUSCULAR HGB CONC 34.1 g/dL (32.0-36.0); MEAN CORPUSCULAR VOLUME 92 fl (80-97); MONOCYTES % (AUTO) 8.3 % (3-13); PLATELET COUNT 204 10^3/uL (150-450); RED BLOOD COUNT 4.63 10^6/uL (3.72-5.28); RED CELL DISTRIBUTION WIDTH 13.9 % (11.5-14.0); SEGMENTED NEUTROPHILS % (AUTO) 76.4 % (42-78); TOTAL CELLS COUNTED % (AUTO) 100 %; WHITE BLOOD COUNT 8.2 10^3/uL (4.0-10.5)
[2017-12-05 10:24] LABS: ALANINE AMINOTRANSFERASE 25 U/L (9-52); ALBUMIN 3.9 g/dL (3.5-5.0); ALKALINE PHOSPHATASE 72 U/L (38-126); ANION GAP 9 (5-19); ASPARTATE AMINO TRANSFERASE 23 U/L (14-36); BILIRUBIN,DIRECT 0.3 mg/dL (0.0-0.4); BILIRUBIN,TOTAL 0.8 mg/dL (0.2-1.3); BLOOD UREA NITROGEN 19 mg/dL (7-20); CALCIUM 9.1 mg/dL (8.4-10.2); CARBON DIOXIDE 30 mmol/L (22-30); CHLORIDE 103 mmol/L (98-107); CREATINE KINASE 62 U/L (30-135); GLUCOSE 212 mg/dL (75-110); SODIUM 141.7 mmol/L (137-145); TOTAL PROTEIN 6.7 g/dL (6.3-8.2)
[2017-12-05 10:36] LABS: CREATINE KINASE MB 1.32 ng/mL (<4.55); NT PRO BNP 897 pg/mL (<450)
[2017-12-05 10:38] LABS: TROPONIN I < 0.012 ng/mL
--- NOTE | 2017-12-05 10:38 | RADIOLOGY REPORT (SQ) ---
EXAM DESCRIPTION: CHEST SINGLE VIEW COMPLETED DATE/TIME: 12/05/2017 10:27 am REASON FOR STUDY: chest pain COMPARISON: Chest films 02/06/2016, 04/23/2017 EXAM PARAMETERS: NUMBER OF VIEWS: One view. TECHNIQUE: Single frontal radiographic view of the chest acquired. RADIATION DOSE: NA LIMITATIONS: None. FINDINGS: LUNGS AND PLEURA: No opacities, masses or pneumothorax. No pleural effusion. MEDIASTINUM AND HILAR STRUCTURES: No masses. Contour normal. HEART AND VASCULAR STRUCTURES: Borderline cardiomegaly BONES: No acute findings. HARDWARE: None in the chest. OTHER: No other significant finding. IMPRESSION: NO ACUTE RADIOGRAPHIC FINDING IN THE CHEST. TECHNICAL DOCUMENTATION: JOB ID: [id number] [employer]- All Rights Reserved Reading location - IP/workstation name: [email or web address]
[2017-12-05 11:30] LABS: INTERNATIONAL RATION (INR) 1.82
[2017-12-05 11:31] LABS: PARTIAL THROMBOPLASTIN TIME 34.8 SEC (23.5-35.8)
--- NOTE | 2017-12-05 12:51 | ER Document Report ---
ED Cardiac - General Chief Complaint: Chest Pain Stated Complaint: CHEST PAIN Time Seen by Provider: 12/05/17 09:47 Notes: 82-year-old female patient to the emergency department from primary care clinic for evaluation of chest pain. Patient was seen by physician's insurance claims assistant at outpatient clinic. Reportedly patient has been having pain on the right side of her chest and right shoulder for the last couple of days. Has chronic shortness of breath. Chronic chest pain. History of CA with stents. On Plavix. On Coumadin. History of chronic A. fib. Patient states that she has been working at a computer for the last week. States that typing on the computer is irritating her upper body. Was seen in the clinic. There was concerned that maybe her EKG had changed. Patient states that touching the right side of the chest were moving her shoulder makes the pain worse. Patient denies any shortness of breath outside of her normal shortness of breath at this time. TRAVEL OUTSIDE OF THE [place] IN LAST 30 DAYS: No - HPI Patient complains to provider of: Chest pain Quality of pain: Sharp Chest pain radiation location: Right arm, Right shoulder Severity now: Mild Severity at worst: Mild Pain level currently: 2 Cardiac risk factors: Diabetes, Hypertension, Dyslipidemia, Hx CA Positive cardiac history: Yes Associated symptoms: None - Related Data Allergies/Adverse Reactions: iodine [Iodine] Allergy (Intermediate, Verified 12/05/17 10:25) RASH atorvastatin [From Lipitor] Allergy (Verified 12/05/17 10:25) Penicillins Allergy (Verified 12/05/17 10:25) hands itching, rash atorvastatin calcium [From Lipitor] Adverse Reaction (Intermediate, Verified 11/19 10:25) MUSCLE SPASMS morphine [Morphine] Adverse Reaction (Intermediate, Verified 12/05/17 10:25) FEELS LIKE DYING Past Medical History - General Information source: Patient - Social History Smoking Status: Never Smoker Chew tobacco use (# tins/day): No Frequency of alcohol use: None Drug Abuse: None Family History: Reviewed & Not Pertinent Patient has suicidal ideation: No Patient has homicidal ideation: No - Past Medical History Cardiac Medical History: Reports: Hx Atrial Fibrillation, Hx Congestive Heart Failure, Hx Coronary Artery Disease - STENT PLACED X5, Hx Heart Attack - X5, Hx Hypercholesterolemia, Hx Hypertension Pulmonary Medical History: Reports: Hx Pneumonia - 5-6 YEARS AGO, Hx Sleep Apnea Neurological Medical History: Reports: Hx Cerebrovascular Accident Endocrine Medical History: Reports: Hx Diabetes Mellitus Type 2 Renal/ Medical History: Denies: Hx Peritoneal Dialysis GI Medical History: Reports: Hx Gastroesophageal Reflux Disease, Hx Hiatal Hernia. Denies: Hx Pancreatitis Musculoskeltal Medical History: Reports Hx Arthritis, Reports Hx Muscle Weakness - cramps Past Surgical History: Reports: Hx Abdominal Surgery - hernia, Hx Appendectomy, Hx Cardiac Catheterization - stent in circumflex, Hx Cardiac Surgery - stent x6 , Hx Cholecystectomy, Hx Herniorrhaphy, Hx Hysterectomy, Hx Orthopedic Surgery - carpal tunnel - Immunizations Immunizations up to date: Yes Hx Diphtheria, Pertussis, Tetanus Vaccination: No - unknown Hx Pneumococcal Vaccination: 08/04/08 Review of Systems - Review of Systems Constitutional: denies: Fever, Malaise, Weakness EENT: denies: Ear pain, Throat pain, Mouth pain Cardiovascular: Chest pain. denies: Palpitations, Heart racing, Orthopnea, Syncope, Dizziness, Lightheaded, Edema Respiratory: denies: Cough, Hurts to breathe, Hemoptysis, Short of breath Gastrointestinal: denies: Abdominal pain, Diarrhea, Nausea, Vomiting Genitourinary: denies: Burning, Dysuria, Discharge, Flank pain, Urgency, Retention Musculoskeletal: denies: Back pain, Gout, Joint pain, Muscle pain, Leg swelling Skin: denies: Dryness, Lesions, Lumps, Rash Hematologic/Lymphatic: Easy bleeding, Easy bruising. denies: Anemia, Blood clots Neurological/Psychological: denies: Confusion, Weakness, Numbness Physical Exam - Vital signs Vitals: Resp Pulse Ox 21 H 99 12/05/17 09:53 12/05/17 09:53 Interpretation: Normal - General General appearance: Appears well, Alert - HEENT Head: Normocephalic, Atraumatic Eyes: Normal Pupils: PERRL - Respiratory Respiratory status: No respiratory distress Chest status: Nontender Breath sounds: Normal Chest palpation: Normal - Cardiovascular Rhythm: Irregularly irregular Heart sounds: Normal auscultation Murmur: No Notes: When lightly touching the costochondral margin on the right patient jumps. Clearly reproducible. Movement of the right shoulder seems to exacerbate the pain. There are no obvious rashes noted on the chest wall. - Abdominal Inspection: Normal Distension: No distension Bowel sounds: Normal Tenderness: Nontender Organomegaly: No organomegaly - Back Back: Normal, Nontender - Extremities General upper extremity: Normal inspection, Nontender, Normal color, Normal ROM , Normal temperature General lower extremity: Normal inspection, Nontender, Normal color, Normal ROM , Normal temperature, Normal weight bearing. No: Arik's sign - Neurological Neuro grossly intact: Yes Cognition: Normal Orientation: AAOx4 [place] Coma Scale Eye Opening: Spontaneous [place] Coma Scale Verbal: Oriented [place] Coma Scale Motor: Obeys Commands [place] Coma Scale Total: 15 Speech: Normal Motor strength normal: LUE, RUE, LLE, RLE Sensory: Normal - Psychological Associated symptoms: Normal affect, Normal mood - Skin Skin Temperature: Warm Skin Moisture: Dry Skin Color: Normal Course - Re-evaluation Re-evalutation: 12/05/17 13:23 She has very reproducible tenderness when palpating. Definitely exacerbated by stretching of the pectoralis muscles by adduction of the shoulder girdle/arm. First set of labs fairly unremarkable. Slightly elevated BNP but no obvious signs of congestive heart failure. Lungs are clear. Chest x-ray unremarkable. Has a history of CHF. At this time will repeat cardiac labs as everything is unremarkable. Have advised Tylenol for the pain. 12/05/17 15:08 2 sets of cardiac labs unremarkable. Right sided reproducible chest wall pain. No significant florid signs of congestive heart failure. Did inform them of slightly elevated BNP. Patient does not have any pitting edema in the lower extremities, no crackles, normal chest x-ray, normal breath sounds. At this time will discharge. Patient has had a stress test within the last 12 months, has a cardiology appointment in 2 weeks and followed by cardiology and internal medicine as well. Patient is currently on all standard of care medications. Patient is on anticoagulation therapy as well as antiplatelet therapy. Though she does have significant risk factors I believe patient stable for outpatient workup. Patient advised to return immediately for any worsening symptoms or concerns. - Vital Signs Vital signs: Temp Pulse Resp BP Pulse Ox 98.0 F 24 H 162/71 H 97 12/05/17 10:07 12/05/17 13:01 12/05/17 12:01 12/05/17 13:01 - Laboratory Result Diagrams: 12/05/17 09:55 12/05/17 09:55 Laboratory results interpreted by me: 12/05/17 12/05/17 12/05/17 09:55 09:55 09:55 PT 22.0 H Glucose 212 H NT-Pro-B Natriuret Pep 897 H Discharge - Discharge Clinical Impression: Right-sided chest pain Condition: Good Disposition: HOME, SELF-CARE Instructions: Chest Wall Pain ([facility]), Chest Pain of Unclear Cause ([facility]) Additional Instructions: Please follow-up with your regular doctor as needed. If you develop any worsening symptoms especially worsening chest pain, shortness of breath, swelling of the legs then please return immediately. Continue all of your regular medications as prescribed. Referrals: ZACKERY NEELY MD [Primary Care Provider] - Follow up as needed
[2017-12-05] MEDS ORDERED: ACETAMINOPHEN 325 MG TABLET PO ONE (14:09)
[2017-12-05 15:39] VITALS: BP 163/76
--- NOTE | 2017-12-05 21:17 | EKG REPORT ---
SEVERITY:- ABNORMAL ECG - ATRIAL FIBRILLATION BORDERLINE RIGHT AXIS DEVIATION CONSIDER ANTEROSEPTAL INFARCT : Confirmed by: Aaron Stone 05-Dec-2017 21:16:33
== END 2017-12-05 15:49 | disposition home or self-care (01) ==
LOC: ER 09:36
DX: R07.89 Other chest pain (principal); G89.29 Other chronic pain; M25.511 Pain in right shoulder; R79.89 Other specified abnormal findings of blood chemistry; R06.02 Shortness of breath; E11.9 Type 2 diabetes mellitus without complications; I10 Essential (primary) hypertension; I48.91 Unspecified atrial fibrillation; I25.10 Atherosclerotic heart disease of native coronary artery without angina pectoris; I25.2 Old myocardial infarction; Z95.5 Presence of coronary angioplasty implant and graft; Z79.02 Long term (current) use of antithrombotics/antiplatelets; Z79.01 Long term (current) use of anticoagulants; Z88.8 Allergy status to other drugs, medicaments and biological substances; Z88.0 Allergy status to penicillin
CPT/HCPCS: 93005; 99285; 36415; 82553; 82550; 85025; 85610; 85730; 80053; 84484; 83880; 71045; 93010; A9270

== ENCOUNTER → 2018-04-01 | Outpatient (CLI) | payer MEDICARE, OTHER ==
--- NOTE | 2018-04-01 12:02 | WOMENS IMAGING REPORT ---
EXAM DESCRIPTION: 3D SCREENING MAMMO BILAT COMPLETED DATE/TIME: 04/01/2018 11:11 am REASON FOR STUDY: SCREENING MAMMO Z12.31 ENCNTR SCREEN MAMMOGRAM FOR MALIGNANT NEOPLASM OF [place] COMPARISON: Multiple since 2009 TECHNIQUE: Standard craniocaudal and mediolateral oblique views of each breast recorded using digita l acquisition and breast tomosynthesis. LIMITATIONS: None. FINDINGS: Findings present which are benign by mammographic criteria. No suspicious masses, calcifi cations or architectural distortion. Pertinent benign findings: Stable coarse dense benign appearing breast parenchymal calcifications. O ld stereotactic biopsy clip left upper outer quadrant Read with the assistance of CAD. .[facility] - R2 Cenova Version 1.3 .[facility] - R2 Cenova Version 1.3 .[facility] - R2 Cenova Version 2.4 .[facility] - R2 Cenova Version 2.4 .[facility] - R2 Telephone Solicitor Supervisor Version 9.2 Benign mammographic findings may include one or more of the following: Smooth masses, popcorn/rim/co arse calcifications, asymmetries, post-procedure changes, and lesions with long-standing stability. IMPRESSION: BENIGN MAMMOGRAPHIC FINDINGS. BIRADS 2 BREAST DENSITY: d. The breasts are extremely dense, which lowers the sensitivity of mammography. BIRAD: 2 BENIGN FINDING(S) RECOMMENDATION: RECOMMENDATION: ROUTINE SCREENING Please continue bilateral screening tomosynthesis in April 2019. Continue tomosynthesis given ex tremely dense fibroglandular tissue bilaterally. COMMENT: The patient has been notified of the results by letter per SA requirements. Additional no tification policies are in place for contacting patient with suspicious or incomplete findings. Quality ID #[id number]: The [employer] recommends an annual screening mammogram for women aged 40 years or over. This facility utilizes a reminder system to ensure that all patients receive reminder letters, and/or direct phone calls for appointments. This includes reminders for routine scr eening mammograms, diagnostic mammograms, or other Breast Imaging Interventions when appropriate. Th is patient will be placed in the appropriate reminder system. The [employer] (ACR) has developed recommendations for screening MRI of the breast s in certain patient populations, to be used in conjunction with mammography. Breast MRI surveillanc e may be appropriate for women with more than 20% lifetime risk of developing breast cancer as deter mined by genetic testing, significant family history of the disease, or history of mantle radiation f or Hodgkins Disease. ACR Practice Guidelines 2008. DBT Technology DBT is a type of tomographic mammography. With conventional mammography, overlapping breast tissue ma y make lesions difficult to detect, even with good compression. DBT uses an x-ray tube that rotates a round the breast, taking images at different angles. These images are then combined to create thin sl ices of the breast that the radiologist can view as a 3D reconstruction. The EPV SOLAR unit can perform full-field digital mammograms (2D imaging); or DBT (3D imaging); or both, in a combination mode that quickly performs both the mammogram and the tomosynthesis scan while the breast is still compressed. PQRS 6045F: Fluoroscopic imaging is not utilized for breast tomosynthesis. TECHNICAL DOCUMENTATION: FINDING NUMBER: (1) ASSESSMENT: (1) JOB ID: [id number] [employer]- All Rights Reserved Reading location - IP/workstation name: [email or web address]
== END ==
LOC: WI 10:01
PROVIDERS: ATTEND Physician Assistant
DX: Z12.31 Encounter for screening mammogram for malignant neoplasm of breast (principal)
CPT/HCPCS: 77063; 77067

== ENCOUNTER 2018-06-14 09:37 | Observation (INO) | payer MEDICARE, OTHER ==
--- NOTE | 2018-06-14 10:08 | ER Document Report ---
ED General - General Mode of Arrival: Ambulatory Information source: Patient TRAVEL OUTSIDE OF THE [place] IN LAST 30 DAYS: No <ANNIE JETER - Last Filed: 06/14/18 10:49> <RAZIA ALMEIDA - Last Filed: 06/14/18 14:35> - General Stated Complaint: JAW AND SHOULDER PAIN Time Seen by Provider: 06/14/18 09:50 Notes: Patient is an 82-year-old female with CHF, afib, HTN, hyperlipidemia, type 2 diabetes, hypothyroidism, GERD and a reported history of a prior CVA in 1996 presents to the emergency department accompanied by daughter complaining of numbness in the mouth and bilateral lower extremities. Patient states she began to have numbness at the right corner of her mouth and noticed some "drawing" of that side. She states she then began to have numbness in her bilateral lower extremities, further stating she noticed numbness to the level of the knee of her left leg and numbness of the entire right leg. Patient states her symptoms feel similar to her previous CVA. At bedside she states she is still having numbness in her lower extremities and around her mouth. Of significance, patient had a LAD stent placed 2 days ago at [facility]. She states she was told to discontinue Coumadin 5 days ago and continued it again 2 days ago after the procedure. She states she was also given Plavix after the procedure. Patient also states she has known left carotid stenosis although it has not been checked in a while. Patient reports having an appointment with her PCP, Dr. Ponce, on 06/16/2018. ( ANNIE JETER) The patient is not a TPA candidate. She takes Coumadin and Plavix. She had an arterial puncture for an LAD stent 2 days ago. Her only symptom at this time is a right diana-oral numbness. There are no motor deficits detected. (RAZIA ALMEIDA) - Related Data Allergies/Adverse Reactions: iodine [Iodine] Allergy (Intermediate, Verified 12/05/17 10:25) RASH atorvastatin [From Lipitor] Allergy (Verified 12/05/17 10:25) Penicillins Allergy (Verified 12/05/17 10:25) hands itching, rash atorvastatin calcium [From Lipitor] Adverse Reaction (Intermediate, Verified 11/19 10:25) MUSCLE SPASMS morphine [Morphine] Adverse Reaction (Intermediate, Verified 12/05/17 10:25) FEELS LIKE DYING Past Medical History - General Information source: Patient - Social History Smoking Status: Never Smoker Cigarette use (# per day): No Chew tobacco use (# tins/day): No Smoking Education Provided: No Frequency of alcohol use: None Family History: Reviewed & Not Pertinent - Past Medical History Cardiac Medical History: Reports: Hx Atrial Fibrillation, Hx Congestive Heart Failure, Hx Coronary Artery Disease - STENT PLACED X5, Hx Heart Attack - X5, Hx Hypercholesterolemia, Hx Hypertension Pulmonary Medical History: Reports: Hx Pneumonia - 5-6 YEARS AGO, Hx Sleep Apnea Neurological Medical History: Reports: Hx Cerebrovascular Accident Endocrine Medical History: Reports: Hx Diabetes Mellitus Type 2 GI Medical History: Reports: Hx Gastroesophageal Reflux Disease, Hx Hiatal Hernia Musculoskeletal Medical History: Reports Hx Arthritis, Reports Hx Muscle Weakness - cramps Past Surgical History: Reports: Hx Abdominal Surgery - hernia, Hx Appendectomy, Hx Cardiac Catheterization - stent in circumflex, Hx Cardiac Surgery - stent x6 , Hx Cholecystectomy, Hx Herniorrhaphy, Hx Hysterectomy, Hx Orthopedic Surgery - carpal tunnel - Immunizations Immunizations up to date: Yes Hx Diphtheria, Pertussis, Tetanus Vaccination: No - unknown Hx Pneumococcal Vaccination: 08/04/08 <ANNIE JETER - Last Filed: 06/14/18 10:49> Review of Systems - Review of Systems Constitutional: No symptoms reported EENT: No symptoms reported Cardiovascular: No symptoms reported Respiratory: No symptoms reported Gastrointestinal: No symptoms reported Genitourinary: No symptoms reported Female Genitourinary: No symptoms reported Musculoskeletal: No symptoms reported Skin: No symptoms reported Hematologic/Lymphatic: No symptoms reported Neurological/Psychological: See HPI, Numbness -: Yes All other systems reviewed and negative <ANNIE JETER - Last Filed: 06/14/18 10:49> Physical Exam <ANNIE JETER - Last Filed: 06/14/18 10:49> <RAZIA ALMEIDA - Last Filed: 06/14/18 14:35> - Vital signs Vitals: Resp BP Pulse Ox 15 149/75 H 96 06/14/18 10:02 06/14/18 10:02 06/14/18 10:02 - Notes Notes: GENERAL: Alert, interacts well. No acute distress. HEAD: Normocephalic, atraumatic. EYES: Pupils equal, round, and reactive to light. Extraocular movements intact. ENT: Oral mucosa moist, tongue midline. NECK: Full range of motion. Supple. Trachea midline. Left carotid bruit. LUNGS: Clear to auscultation bilaterally, no wheezes, rales, or rhonchi. No respiratory distress. HEART: Irregular. Chronic afib. ABDOMEN: Soft, non-tender. Non-distended. Bowel sounds present in all 4 quadrants. EXTREMITIES: Moves all 4 extremities spontaneously. No edema, radial and dorsalis pedis pulses 2/4 bilaterally. No cyanosis. NEUROLOGICAL: Alert and oriented x3. Normal speech. No motor deficits. PSYCH: Normal affect, normal mood. SKIN: Warm, dry. Large ecchymotic area over left volar forearm consistent with history of left stent placement 2 days ago. (ANNIE JETER) Course - Laboratory Result Diagrams: 06/14/18 10:05 06/14/18 10:05 <ANNIE JETER - Last Filed: 06/14/18 10:49> - Laboratory Result Diagrams: 06/14/18 10:05 06/14/18 10:05 - Diagnostic Test Radiology reviewed: Reports reviewed - Head CT shows chronic microvascular ischemic changes and atrophy with nothing acute. - EKG Interpretation by Hi EKG shows normal: [place], Intervals, QRS Complexes, ST-T Waves Rate: Normal - 90 Rhythm: A.Fib, PVC's - Consults Dr. Hyatt Time consulted: 14:15 Consulted provider: will see as inpatient - Agrees to bring the patient in as an observation. <RAZIA ALMEIDA - Last Filed: 06/14/18 14:35> - Vital Signs Vital signs: Temp Pulse Resp BP Pulse Ox 101 H 21 H 141/84 H 94 06/14/18 12:00 06/14/18 12:01 06/14/18 12:01 06/14/18 12:01 - Laboratory Laboratory results interpreted by ak: 06/14/18 06/14/18 10:05 10:15 Carbon Dioxide 31 H Glucose 241 H POC Glucose 217 H Creatine Kinase 160 H Discharge <ANNIE JETER - Last Filed: 06/14/18 10:49> - Discharge Admitting Provider: Kris Hyatt is covering Unit Admitted: Telemetry <RAZIA ALMEIDA - Last Filed: 06/14/18 14:35> - Discharge Clinical Impression: Right facial numbness, Left carotid bruit, Chronic atrial fibrillation, Inadequate anticoagulation Condition: Stable Disposition: ADMITTED OBSERVATION Referrals: KRISTOFER MACK PA [Primary Care Provider] - Follow up as needed Scribe Attestation: 06/14/18 10:46 I personally performed the services described in the documentation, reviewed and edited the documentation which was dictated to the scribe in my presence, and it accurately records my words and actions. (RAZIA ALMEIDA) Scribe Documentation - Scribe Written by Tanvie:: Iram Shaw, 06/14/2018 10:24 acting as scribe for :: Yun <ANNIE JETER - Last Filed: 06/14/18 10:49>
[2018-06-14 10:11] LABS: ABSOLUTE EOSINOPHILS # (AUTO) 0.1 10^3/uL (0.0-0.6); ABSOLUTE LYMPHOCYTES (AUTO) 1.1 10^3/uL (0.5-4.7); ABSOLUTE MONOCYTES (AUTO) 0.7 10^3/uL (0.1-1.4); ABSOLUTE NEUT (AUTO) 4.3 10^3/uL (1.7-8.2); BASOPHILS % (AUTO) 0.6 % (0-2); EOSINOPHILS % (AUTO) 1.9 % (0-6); HEMATOCRIT 44.1 % (36.0-47.0); MEAN CORPUSCULAR HEMOGLOBIN 31.2 pg (27.0-33.4); MEAN CORPUSCULAR VOLUME 92 fl (80-97); MONOCYTES % (AUTO) 11.2 % (3-13); PLATELET COUNT 214 10^3/uL (150-450); RED CELL DISTRIBUTION WIDTH 13.4 % (11.5-14.0); SEGMENTED NEUTROPHILS % (AUTO) 68.3 % (42-78); TOTAL CELLS COUNTED % (AUTO) 100 %; WHITE BLOOD COUNT 6.2 10^3/uL (4.0-10.5)
--- NOTE | 2018-06-14 10:12 | RADIOLOGY REPORT (SQ) ---
EXAM DESCRIPTION: CT HEAD WITHOUT COMPLETED DATE/TIME: 06/14/2018 10:00 am REASON FOR STUDY: Stroke Alert COMPARISON: 2017. TECHNIQUE: Axial images acquired through the brain without intravenous contrast. Images reviewed wi th bone, brain and subdural windows. Additional sagittal and coronal reconstructions were generated. Images stored on PACS. All CT scanners at this facility use dose modulation, iterative reconstruction, and/or weight based d osing when appropriate to reduce radiation dose to as low as reasonably achievable (ALARA). [facility]: Dose Right [facility]: CareDose [facility]: Dose Right [facility]: Teradose 4D [facility]: Bionaturis RADIATION DOSE: CT Rad equipment meets quality standard of care and radiation dose reduction techniq ues were employed. CTDIvol: 53.2 mGy. DLP: 1044 mGy-cm. mGy. LIMITATIONS: None. FINDINGS: VENTRICLES: Age-appropriate. CEREBRUM: No masses. No hemorrhage. No midline shift. No evidence for acute infarction. Mild small vessel disease suggested, patchy low density in the white matter. CEREBELLUM: No masses. No hemorrhage. No alteration of density. No evidence for acute infarction. EXTRAAXIAL SPACES: No fluid collections. No masses. ORBITS AND GLOBE: No intra- or extraconal masses. Normal contour of globe without masses. CALVARIUM: No fracture. PARANASAL SINUSES: No fluid or mucosal thickening. SOFT TISSUES: No mass or hematoma. OTHER: No other significant finding. IMPRESSION: Mild chronic changes. No acute intracranial abnormality. Attempted to report findings as CRITICAL RESULT to RAZIA ALMEIDA MD at10:05 on 06/14/2018 without power ccess. . Category of Critical Result: Stroke alert. EVIDENCE OF ACUTE STROKE: NO. COMMENT: Quality ID # [id number]: Final reports with documentation of one or more dose reduction techniques (e.g., Automated exposure control, adjustment of the mA and/or kV according to patient size, use of iterative reconstruction technique) TECHNICAL DOCUMENTATION: JOB ID: [id number] [employer]- All Rights Reserved Reading location - IP/workstation name: [email or web address]
[2018-06-14 10:30] LABS: ALANINE AMINOTRANSFERASE 16 U/L (9-52); ALBUMIN 4.3 g/dL (3.5-5.0); ALKALINE PHOSPHATASE 82 U/L (38-126); ANION GAP 12 (5-19); ASPARTATE AMINO TRANSFERASE 26 U/L (14-36); BILIRUBIN,DIRECT 0.3 mg/dL (0.0-0.4); BILIRUBIN,TOTAL 0.8 mg/dL (0.2-1.3); BLOOD UREA NITROGEN 20 mg/dL (7-20); CALCIUM 9.4 mg/dL (8.4-10.2); CARBON DIOXIDE 31 mmol/L (22-30); CHLORIDE 100 mmol/L (98-107); CREATINE KINASE 160 U/L (30-135); GLUCOSE 241 mg/dL (75-110); POTASSIUM 4.4 mmol/L (3.6-5.0); SODIUM 143.3 mmol/L (137-145); TOTAL PROTEIN 7.6 g/dL (6.3-8.2)
[2018-06-14 10:40] LABS: CREATINE KINASE MB 4.16 ng/mL (<4.55)
[2018-06-14 10:43] LABS: TROPONIN I 0.091 ng/mL
--- NOTE | 2018-06-14 10:47 | RADIOLOGY REPORT (SQ) ---
EXAM DESCRIPTION: CHEST SINGLE VIEW COMPLETED DATE/TIME: 06/14/2018 10:03 am REASON FOR STUDY: Stroke Alert COMPARISON: 2016. NUMBER OF VIEWS: One view. TECHNIQUE: Single frontal radiographic view of the chest acquired. LIMITATIONS: None. FINDINGS: LUNGS AND PLEURA: Increased markings in the lung bases, likely mild chronic scar. Lungs o therwise clear. MEDIASTINUM AND HILAR STRUCTURES: No masses. Contour normal. HEART AND VASCULAR STRUCTURES: Heart size slightly prominent. Some of this may be technique related. No overt congestive failure. BONES: No acute findings. HARDWARE: None in the chest. OTHER: No other significant finding. IMPRESSION: No acute cardiopulmonary disease suggested. Findings as above. TECHNICAL DOCUMENTATION: JOB ID: [id number] [employer]- All Rights Reserved Reading location - IP/workstation name: [email or web address]
[2018-06-14 12:33] LABS: PROTHROMBIN TIME 14.8 SEC (11.4-15.4)
[2018-06-14 15:21] LABS: APPEARANCE,URINE CLEAR; BILIRUBIN,URINE NEGATIVE (NEGATIVE); COLOR,URINE COLORLESS; GLUCOSE, URINE 50 mg/dL (NEGATIVE); KETONES,URINE NEGATIVE (NEGATIVE); LEUKOCYTE ESTERASE,URINE NEGATIVE (NEGATIVE); NITRITE,URINE NEGATIVE (NEGATIVE); PROTEIN,URINE NEGATIVE (NEGATIVE); URINE SPECIFIC GRAVITY 1.008; UROBILINOGEN,URINE NEGATIVE mg/dL (<2.0)
[2018-06-14] MEDS ORDERED: DEXTROSE 50%-WATER 25 GM/50 ML DISP.SYRIN IV PRN ×2 (16:34)
[2018-06-14] MEDS ORDERED: GLUCAGON,HUMAN RECOMB 1 MG INJ IM PRN (16:34)
[2018-06-14] MEDS ORDERED: DEXTROSE 40% GEL 15 GM TUBE PO PRN ×2 (16:34)
--- NOTE | 2018-06-14 17:46 | EKG REPORT ---
SEVERITY:- ABNORMAL ECG - ATRIAL FIBRILLATION VENTRICULAR PREMATURE COMPLEX : Confirmed by: Isaias Joel MD 14-Jun-2018 17:45:51
[2018-06-14] MEDS ORDERED: (PENDING PHARMACY ID) (Insulin Aspart Protam & Aspart [Novolog Mix 70-30 Vial] 20 UNIT) SQ SCH (18:00)
[2018-06-14] MEDS: OMEGA-3 ACID ETHYL ESTERS 1 GM CAPSULE PO SCH (18:09)
[2018-06-14] MEDS: PSYLLIUM SEED-SF 5.85 GM PACKET PO SCH (18:11)
[2018-06-14] MEDS: POLYETHYLENE GLYCOL 3350 POWDER 17 GM/1 PACKET PO SCH (18:11)
--- NOTE | 2018-06-14 18:39 | PDOC H&P ---
History of Present Illness Admission Date/PCP: 06/14/18 14:49 JENNIFER GARCIA Patient complains of: Numbness around mouth and bilateral lower extremities History of Present Illness: ARNAUD HEALY is a 82 year old female patient of Dr June Ponce who presented to the ED with complain of new onset numbness around her mouth, face and lower extremities. She has extensive history of CVA events and was on Coumadin therapy with home monitoring until about 5 days ago when it was discontinued to allow for PCI with stent placement 2 days ago. Patient was discharged home on both Plavix and Coumadin and she reported taking 10 mg of Coumadin last night. She denied any palpitation or irregular heart beat. No headache or dizziness. She reported persistence of her numbness during her ED stay. At the time of my bedside evaluation she was able to self feed and claimed improvement to her diana -oral numbness but continue to experience some numbness in both legs but less intense. Her morbidities include CHF, Chronic Atrial fibrillation, Hypertension , CAD, Left Carotid artery stenosis, hyperlipidemia, type 2 diabetes, hypothyroidism, GERD, and osteoarthritis. Past Medical History Cardiac Medical History: Reports: Atrial Fibrillation, Congestive Heart Failure , Coronary Artery Disease - STENT PLACED X5, Myocardial Infarction - X5, Hyperlipidema, Hypertension Pulmonary Medical History: Reports: Pneumonia - 5-6 YEARS AGO, Sleep Apnea Endocrine Medical History: Reports: Diabetes Mellitus Type 2 GI Medical History: Reports: Gastroesophageal Reflux Disease, Hiatal Hernia Musculoskeltal Medical History: Reports: Arthritis Past Surgical History Past Surgical History: Reports: Appendectomy, Cardiac Catheterization - stent in circumflex, Cholecystectomy, Herniorrhaphy, Hysterectomy, Orthopedic Surgery - carpal tunnel Denies: Amputation Social History Smoking Status: Never Smoker Frequency of Alcohol Use: None Hx Recreational Drug Use: No Hx Prescription Drug Abuse: No - Advance Directive Resuscitation Status: Full Code Family History Family History: Reviewed & Not Pertinent Parental Family History Reviewed: Yes Children Family History Reviewed: Yes Sibling(s) Family History Reviewed.: Yes Medication/Allergy Home Medications: Amlodipine Besylate [Norvasc 5 mg Tablet] 5 mg PO QHS 06/14/18 Clopidogrel Bisulfate [Plavix 75 mg Tablet] 75 mg PO DAILY 06/14/18 Fenofibrate 54 mg PO QAM 06/14/18 Ferrous Sulfate [Feosol 325 mg Tablet] 325 mg PO QHS 06/14/18 Furosemide [Lasix 40 mg Tablet] 40 mg PO QAM 06/14/18 Gabapentin [Neurontin 400 mg Capsule] 400 mg PO Q8 06/14/18 Insulin Aspart Protam & Aspart [Novolog Mix 70-30 Vial] 20 unit SQ QPM 06/14/18 Levothyroxine Sodium [Synthroid 0.025 mg Tablet] 25 mcg PO Q6AM 06/14/18 Linagliptin [Tradjenta] 5 mg PO QAM 06/14/18 [place]iftwood-3 Fatty Acids/Fish Oil [Driftwood 3 Fish Oil Softgel] 2 each PO BID 06/14/18 Pantoprazole Sodium [Protonix] 40 mg PO QPM 06/14/18 Polyethylene Glycol 3350 [Miralax Powder 17 gm/Packet] 1 packet PO BID 06/14/18 Potassium Chloride [Klor-Con 10 Meq Capsule ER] 10 meq PO Q12 06/14/18 Psyllium Husk (with Sugar) [Metamucil Packet] 3.4 gm PO BID 06/14/18 Red Yeast Rice 600 mg PO QHS 06/14/18 Rosuvastatin Calcium [Crestor 10 mg Tablet] 10 mg PO QPM 06/14/18 Warfarin Sodium [Coumadin 7.5 mg Tablet] 7.5 mg PO QPM 06/14/18 Allergies/Adverse Reactions: iodine [Iodine] Allergy (Intermediate, Verified 12/05/17 10:25) RASH atorvastatin [From Lipitor] Allergy (Verified 12/05/17 10:25) Penicillins Allergy (Verified 12/05/17 10:25) hands itching, rash atorvastatin calcium [From Lipitor] Adverse Reaction (Intermediate, Verified 11/19 10:25) MUSCLE SPASMS morphine [Morphine] Adverse Reaction (Intermediate, Verified 12/05/17 10:25) FEELS LIKE DYING Review of Systems Constitutional: ABSENT: chills, fever(s), headache(s), weight gain, weight loss Eyes: ABSENT: visual disturbances Ears: ABSENT: hearing changes Nose, Mouth, and Throat: ABSENT: as per HPI, headache(s), mouth pain, sore throat, vertigo, other Cardiovascular: ABSENT: chest pain, dyspnea on exertion, edema, orthropnea, palpitations Respiratory: ABSENT: cough, hemoptysis Gastrointestinal: ABSENT: abdominal pain, constipation, diarrhea, hematemesis, hematochezia, nausea, vomiting Genitourinary: ABSENT: dysuria, hematuria Musculoskeletal: PRESENT: deformity - related to multple joints involvement with arthritis. ABSENT: joint swelling Integumentary: ABSENT: rash, wounds Neurological: PRESENT: numbness - around mouth and lower extremities. ABSENT: as per HPI, abnormal gait, abnormal movements, abnormal speech, confusion, convulsions, dizziness, focal weakness, frequent falls, lack of coordination, memory loss, paresthesias, restless legs, syncope, tingling, tremor(s), vertigo , weakness, other Psychiatric: ABSENT: anxiety, depression, homidical ideation, suicidal ideation Endocrine: ABSENT: cold intolerance, heat intolerance, polydipsia, polyuria Hematologic/Lymphatic: ABSENT: easy bleeding, easy bruising, lymphadenopathy Allergic/Immunologic: ABSENT: seasonal rhinorrhea Physical Exam Vital Signs: Temp Pulse Resp BP Pulse Ox 98.2 F 86 18 162/68 H 97 06/14/18 17:15 06/14/18 17:15 06/14/18 17:15 06/14/18 17:15 06/14/18 17:15 Intake & Output 06/13/18 06/14/18 06/15/18 06:59 06:59 06:59 Weight 80.9 kg General appearance: PRESENT: no acute distress, obese Head exam: PRESENT: atraumatic, normocephalic Eye exam: PRESENT: conjunctiva pink, EOMI, PERRLA. ABSENT: scleral icterus Ear exam: PRESENT: normal external ear exam Mouth exam: PRESENT: moist Neck exam: PRESENT: carotid bruit - left sided, full ROM. ABSENT: JVD, lymphadenopathy, thyromegaly Respiratory exam: PRESENT: clear to auscultation amparo Cardiovascular exam: PRESENT: irregular rhythm, +S1, +S2 Pulses: PRESENT: +1 pedal pulses bilateral Vascular exam: PRESENT: normal capillary refill. ABSENT: pallor GI/Abdominal exam: PRESENT: normal bowel sounds, soft. ABSENT: distended, guarding, mass, organolmegaly, rebound, tenderness Rectal exam: PRESENT: deferred Extremities exam: ABSENT: pedal edema Musculoskeletal exam: PRESENT: deformity - related to multiple joints involvement with arthritis Neurological exam: PRESENT: alert, awake, oriented to person, oriented to place , oriented to time, oriented to situation, CN II-XII grossly intact. ABSENT: motor sensory deficit Psychiatric exam: PRESENT: appropriate affect, normal mood. ABSENT: homicidal ideation, suicidal ideation Skin exam: PRESENT: dry, intact, warm. ABSENT: cyanosis, rash Results Laboratory Results: I reviewed her lab results on [facility] [facility] [employer] [facility]) and form significant part of my medical decision making. Impressions: Chest X-Ray 06/14/18 00:00 IMPRESSION: No acute cardiopulmonary disease suggested. Findings as above. Head CT 06/14/18 00:00 IMPRESSION: Mild chronic changes. No acute intracranial abnormality. Attempted to report findings as CRITICAL RESULT to RAZIA ALMEIDA MD at10:05 on 06/14/2018 without success. . Category of Critical Result: Stroke alert. EVIDENCE OF ACUTE STROKE: NO. Assessment & Plan - Diagnosis (1) Right facial numbness Is this a current diagnosis for this admission?: Yes Plan: Patient will be admitted to observation bed status and workup for possible CVA or TIA in view of her presenting symptoms and negative CT brain for any acute pathology. In view of her stent placement we will obtain more information before MRI brain evaluation for compatibility with proposed procedure. I discussed issue of triple antiplatelet/coagulation management in this 82 years old female patient wit Dr Earl, irrigator gravity flow with [facility] who was involved in her recent PCI stent angioplasty procedure. he is in agreement to continue Plavix and Aspirin and hold off on restarting Coumadin at this time. (2) Left carotid bruit Is this a current diagnosis for this admission?: Yes Plan: Obtain carotid doppler evaluation for further assessment of degree of arterial stenosis and any need for further intervention. (3) Chronic atrial fibrillation Is this a current diagnosis for this admission?: Yes Plan: Maintain on Plavix and Aspirin therapy at this time due to concern for significant risk of bleeding. (4) Congestive heart failure Qualifiers: Heart failure type: combined systolic and diastolic Heart failure chronicity: chronic Qualified Code(s): I50.42 - Chronic combined systolic ( congestive) and diastolic (congestive) heart failure Is this a current diagnosis for this admission?: Yes Plan: Continue her pre-admission medication management. (5) Coronary artery disease Qualifiers: Coronary Disease-Associated Artery/Lesion type: unspecified vessel or lesion type Is this a current diagnosis for this admission?: Yes Plan: Continue her pre-admission medication management. (6) Hyperlipidemia Qualifiers: Hyperlipidemia type: other hyperlipidemia Is this a current diagnosis for this admission?: Yes Plan: Continue her pre-admission medication management. (7) Hypertension Qualifiers: Hypertension type: essential hypertension Qualified Code(s): I10 - Essential (primary) hypertension Is this a current diagnosis for this admission?: Yes Plan: Continue her pre-admission medication management. (8) Type 2 diabetes mellitus Qualifiers: Diabetes mellitus complication status: with unspecified complications Is this a current diagnosis for this admission?: Yes Plan: Continue her pre-admission medication management. - Time Time Spent: 50 to 70 Minutes Medications reviewed and adjusted accordingly: Yes Anticipated discharge: Home with Homehealth Within: within 48 hours - Plan Summary Plan Summary: See covering admitting attending physician orders. Continue her pre-admission medication management. I had extensive discussion with patient and daughter at bedside regarding care plan and they are in agreement as stated above.
[2018-06-14] MEDS ORDERED: ASPIRIN 81 MG TABLET, ENT COATED PO ONE ×2 (18:42→22:00)
[2018-06-14] MEDS ORDERED: CLOPIDOGREL BISULFATE 75 MG TABLET PO ONE ×2 (18:42→21:30)
--- NOTE | 2018-06-14 19:40 | RADIOLOGY REPORT (SQ) ---
EXAM DESCRIPTION: MRI HEAD WITHOUT COMPLETED DATE/TIME: 06/14/2018 7:20 pm REASON FOR STUDY: Right facial waekness, possible TIA E11.65 TYPE 2 DIABETES MELLITUS WITH HYPERGLY CEMIA COMPARISON: CT 06/14/2018. TECHNIQUE: Multiplanar imaging includes non-contrasted T1, T2, FLAIR, and diffusion with ADC map seq uences. Images stored on PACS. LIMITATIONS: None. FINDINGS: ANATOMY: No anomalies. Normal vascular flow voids. Pituitary fossa normal. CSF SPACES: Normal in size and contour. No hemorrhage. CEREBRUM: Patchy bilateral FLAIR hyperintense T2 lesions with old lacunar infarcts in the deep white matter. No hemorrhage or mass or shift. No hydrocephalus. POSTERIOR FOSSA: No signal alteration. No hemorrhage. No edema, masses or mass effect. Internal alison tory canals, cerebello-pontine angles, mastoids normal. DIFFUSION IMAGING: Tiny punctate foci in the posterior left subcortical cerebrum appear to reflect ar tifactual T2 shine through. Tiny areas of subcortical infarct felt to be less likely. No territoria l infarct identified. ORBITS: No masses. Globes normal. PARANASAL SINUSES: No fluid levels. Mucosa normal. OTHER: No other significant finding. IMPRESSION: 1. Chronic appearing changes. No acute abnormality. EVIDENCE OF ACUTE STROKE: NO. TECHNICAL DOCUMENTATION: JOB ID: [id number] [employer]- All Rights Reserved Reading location - IP/workstation name: [email or web address]
[2018-06-14] MEDS: POTASSIUM CHLORIDE 10 MEQ CAPSULE.ER PO SCH (21:41)
[2018-06-14] MEDS: AMLODIPINE BESYLATE 5 MG TABLET PO SCH (21:41)
[2018-06-14] MEDS: GABAPENTIN 400 MG CAPSULE PO SCH (21:41)
[2018-06-14] MEDS: FERROUS SULFATE 325 MG TABLET PO SCH (21:41)
[2018-06-14] MEDS ORDERED: RED YEAST RICE 600 MG PO SCH (22:00)
[2018-06-15 05:35] LABS: ABSOLUTE EOSINOPHILS # (AUTO) 0.2 10^3/uL (0.0-0.6); ABSOLUTE LYMPHOCYTES (AUTO) 1.3 10^3/uL (0.5-4.7); ABSOLUTE MONOCYTES (AUTO) 0.7 10^3/uL (0.1-1.4); ABSOLUTE NEUT (AUTO) 2.7 10^3/uL (1.7-8.2); BASOPHILS % (AUTO) 0.6 % (0-2); EOSINOPHILS % (AUTO) 3.4 % (0-6); HEMATOCRIT 42.3 % (36.0-47.0); HEMOGLOBIN 14.3 g/dL (12.0-15.5); LYMPHOCYTES % (AUTO) 26.6 % (13-45); MEAN CORPUSCULAR HEMOGLOBIN 31.2 pg (27.0-33.4); MEAN CORPUSCULAR HGB CONC 33.8 g/dL (32.0-36.0); MEAN CORPUSCULAR VOLUME 92 fl (80-97); PLATELET COUNT 185 10^3/uL (150-450); RED BLOOD COUNT 4.58 10^6/uL (3.72-5.28); RED CELL DISTRIBUTION WIDTH 13.7 % (11.5-14.0); SEGMENTED NEUTROPHILS % (AUTO) 55.4 % (42-78); TOTAL CELLS COUNTED % (AUTO) 100 %; WHITE BLOOD COUNT 4.8 10^3/uL (4.0-10.5)
[2018-06-15 06:15] LABS: ALANINE AMINOTRANSFERASE 17 U/L (9-52); ALBUMIN 3.6 g/dL (3.5-5.0); ALKALINE PHOSPHATASE 61 U/L (38-126); ANION GAP 11 (5-19); ASPARTATE AMINO TRANSFERASE 22 U/L (14-36); BILIRUBIN,DIRECT 0.3 mg/dL (0.0-0.4); BILIRUBIN,TOTAL 1.1 mg/dL (0.2-1.3); BLOOD UREA NITROGEN 15 mg/dL (7-20); CALCIUM 9.1 mg/dL (8.4-10.2); CARBON DIOXIDE 27 mmol/L (22-30); CHLORIDE 103 mmol/L (98-107); CHOLESTEROL 156.83 mg/dL (0-200); GLUCOSE 205 mg/dL (75-110); POTASSIUM 4.5 mmol/L (3.6-5.0); SODIUM 140.9 mmol/L (137-145); TOTAL PROTEIN 6.4 g/dL (6.3-8.2); TRIGLYCERIDES 149 mg/dL (<150)
[2018-06-15 06:26] LABS: DIRECT LDL 81 mg/dL (<100)
[2018-06-15] MEDS: GABAPENTIN 400 MG CAPSULE PO SCH ×3 (06:48→21:18)
[2018-06-15] MEDS: LANSOPRAZOLE 30 MG TAB.RAP.DR PO SCH (06:48)
[2018-06-15] MEDS: LEVOTHYROXINE SODIUM 0.025 MG TABLET PO SCH (06:48)
[2018-06-15] MEDS: INSULIN LISPRO 100 UNIT/ML 3 ML VIAL SUBCUT PRN ×4 (08:37→21:18)
[2018-06-15] MEDS: PSYLLIUM SEED-SF 5.85 GM PACKET PO SCH ×2 (09:43→17:17)
[2018-06-15] MEDS: ENOXAPARIN SODIUM INJ 40 MG/0.4 ML DISP.SYRIN SUBCUT SCH (09:52)
[2018-06-15] MEDS: FUROSEMIDE 40 MG TABLET PO SCH (09:53)
[2018-06-15] MEDS: ASPIRIN 81 MG TABLET, ENT COATED PO SCH (09:53)
[2018-06-15] MEDS: POLYETHYLENE GLYCOL 3350 POWDER 17 GM/1 PACKET PO SCH ×2 (09:53→17:16)
[2018-06-15] MEDS: CLOPIDOGREL BISULFATE 75 MG TABLET PO SCH (09:53)
[2018-06-15] MEDS: OMEGA-3 ACID ETHYL ESTERS 1 GM CAPSULE PO SCH ×2 (09:53→17:16)
[2018-06-15] MEDS: SITAGLIPTIN PHOSPHATE 50 MG TABLET PO SCH (09:53)
[2018-06-15] MEDS: FENOFIBRATE NANOCRYSTALLIZED 48 MG TABLET PO SCH (09:53)
[2018-06-15] MEDS: POTASSIUM CHLORIDE 10 MEQ CAPSULE.ER PO SCH ×2 (09:53→21:18)
--- NOTE | 2018-06-15 11:39 | RADIOLOGY REPORT (SQ) ---
EXAM DESCRIPTION: CAROTID DOPPLER COMPLETED DATE/TIME: 06/15/2018 11:24 am REASON FOR STUDY: Possible TIA E11.65 TYPE 2 DIABETES MELLITUS WITH HYPERGLYCEMIA COMPARISON: 04/29/2016 TECHNIQUE: Grayscale ultrasound, Doppler velocity and spectra, and color Doppler images acquired of the extra-cranial carotid and vertebral arteries. Images stored on PACS. LIMITATIONS: None. FINDINGS: RIGHT CAROTID CCA Velocities: Within normal limits. ICA Velocities Peak systolic 87 m/s. End diastolic 20 m/s. Proximal ICA/CCA peak systolic ratio 1.1. Mild plaque formation in the distal common carotid artery and the bulb, unchanged findings from the p rior examination. LEFT CAROTID CCA Velocities: Within normal limits. ICA Velocities Peak systolic 97 m/s. End diastolic 19 m/s. Proximal ICA/CCA peak systolic ratio 1.6. Mild plaque formation in the carotid bulb. VERTEBRAL ARTERIES: Antegrade flow. Normal waveforms. SUBCLAVIAN ARTERIES: No finding. OTHER: No other significant finding. IMPRESSION: 1. NO HEMODYNAMICALLY SIGNIFICANT STENOSIS. 2. No significant interval changes since the prior study dated 04/29/2016. COMMENT: Quality ID #[id number]: Velocity criteria are extrapolated from the diameter data as defined by t he Society of Radiologists in Ultrasound Consensus Conference. Radiology 2003: 229; 340-346. TECHNICAL DOCUMENTATION: JOB ID: [id number] [employer]- All Rights Reserved Reading location - IP/workstation name: [email or web address]
--- NOTE | 2018-06-15 15:18 | PDOC PROGRESS REPORT ---
Subjective Progress Note for:: 06/15/18 Subjective:: Patient denied any dizziness, vertigo, numbness, chest pain or difficulty with breathing. No nausea, vomiting, or abdominal pain. Her brain MRI was negative for any acute pathology. Her carotid doppler revealed some plaques bilaterally but no hemodynamically significant stenosis. awaiting echocardiogram findings. Reason For Visit: POSSIBLE TIA Physical Exam Vital Signs: Temp Pulse Resp BP Pulse Ox 98.7 F 81 18 131/51 H 97 06/15/18 11:25 06/15/18 14:00 06/15/18 12:00 06/15/18 12:00 06/15/18 12:00 Intake & Output 06/14/18 06/15/18 06/16/18 06:59 06:59 06:59 Intake Total 705 565 Balance 705 565 Weight 80.6 kg General appearance: PRESENT: no acute distress, well-developed, well-nourished Head exam: PRESENT: atraumatic, normocephalic Eye exam: PRESENT: conjunctiva pink, EOMI, PERRLA. ABSENT: scleral icterus Ear exam: PRESENT: normal external ear exam Mouth exam: PRESENT: moist Respiratory exam: PRESENT: clear to auscultation amparo Cardiovascular exam: PRESENT: irregular rhythm, +S1, +S2 Vascular exam: PRESENT: normal capillary refill. ABSENT: pallor GI/Abdominal exam: PRESENT: normal bowel sounds, soft. ABSENT: distended, guarding, mass, organolmegaly, rebound, tenderness Extremities exam: ABSENT: pedal edema Musculoskeletal exam: PRESENT: deformity - related to her multiple joints involvement with arthritis Neurological exam: PRESENT: alert, awake, oriented to person, oriented to place , oriented to time, oriented to situation, CN II-XII grossly intact. ABSENT: motor sensory deficit Psychiatric exam: PRESENT: appropriate affect, normal mood. ABSENT: homicidal ideation, suicidal ideation Skin exam: PRESENT: dry, intact, warm. ABSENT: cyanosis, rash Results Laboratory Results: 06/15/18 04:23 06/15/18 04:23 06/15/18 06/15/18 04:23 04:23 WBC 4.8 RBC 4.58 Hgb 14.3 Hct 42.3 MCV 92 MCH 31.2 MCHC 33.8 RDW 13.7 Plt Count 185 Seg Neutrophils % 55.4 Lymphocytes % 26.6 Monocytes % 14.0 H Eosinophils % 3.4 Basophils % 0.6 Absolute Neutrophils 2.7 Absolute Lymphocytes 1.3 Absolute Monocytes 0.7 Absolute Eosinophils 0.2 Absolute Basophils 0.0 Sodium 140.9 Potassium 4.5 Chloride 103 Carbon Dioxide 27 Anion Gap 11 BUN 15 Creatinine 0.68 Est GFR ( Amer) > 60 Est GFR (Non-Af Amer) > 60 Glucose 205 H Calcium 9.1 Total Bilirubin 1.1 AST 22 ALT 17 Alkaline Phosphatase 61 Total Protein 6.4 Albumin 3.6 Triglycerides 149 Cholesterol 156.83 LDL Cholesterol Direct 81 VLDL Cholesterol 30.0 HDL Cholesterol 56 Impressions: Chest X-Ray 06/14/18 00:00 IMPRESSION: No acute cardiopulmonary disease suggested. Findings as above. Head CT 06/14/18 00:00 IMPRESSION: Mild chronic changes. No acute intracranial abnormality. Attempted to report findings as CRITICAL RESULT to RAZIA ALMEIDA MD at10:05 on 06/14/2018 without success. . Category of Critical Result: Stroke alert. EVIDENCE OF ACUTE STROKE: NO. Head MRI 06/14/18 00:00 IMPRESSION: 1. Chronic appearing changes. No acute abnormality. EVIDENCE OF ACUTE STROKE: NO. Carotid Doppler Study 06/15/18 08:00 IMPRESSION: 1. NO HEMODYNAMICALLY SIGNIFICANT STENOSIS. 2. No significant interval changes since the prior study dated 04/29/2016. Assessment & Plan - Diagnosis (1) Right facial numbness Is this a current diagnosis for this admission?: Yes Plan: Resolved. D/C MENDS evaluation. (2) Left carotid bruit Is this a current diagnosis for this admission?: Yes Plan: No significant stenosis. Findings are stable comparatively with 2016. (3) Chronic atrial fibrillation Is this a current diagnosis for this admission?: Yes Plan: Continue on dual antiplatelet therapy with Aspirin and Plavix. (4) Congestive heart failure Qualifiers: Heart failure type: combined systolic and diastolic Heart failure chronicity: chronic Qualified Code(s): I50.42 - Chronic combined systolic ( congestive) and diastolic (congestive) heart failure Is this a current diagnosis for this admission?: Yes Plan: Continue current medication management. Follow up on echocardiogram findings. (5) Coronary artery disease Qualifiers: Coronary Disease-Associated Artery/Lesion type: unspecified vessel or lesion type Is this a current diagnosis for this admission?: Yes Plan: Maintain on current medication management. (6) Hyperlipidemia Qualifiers: Hyperlipidemia type: other hyperlipidemia Is this a current diagnosis for this admission?: Yes Plan: Maintain on current medication management. (7) Hypertension Qualifiers: Hypertension type: essential hypertension Qualified Code(s): I10 - Essential (primary) hypertension Is this a current diagnosis for this admission?: Yes Plan: Maintain on current medication management. (8) Type 2 diabetes mellitus Qualifiers: Diabetes mellitus complication status: with unspecified complications Is this a current diagnosis for this admission?: Yes Plan: Maintain on current medication management. - Time Time Spent with patient: 25-34 minutes Medications reviewed and adjusted accordingly: Yes Anticipated discharge: Home Within: Other - Plan Summary Plan Summary: Maintain on current medication management. discussed case with Dr. Stone regarding echocardiogram performance and findings. D/C MENDS. Monitor blood pressure response. Continue to hold Coumadin due to high risk of bleeding as discussed with Dr. barba yesterday.
--- NOTE | 2018-06-15 19:29 | XCELERA REPORT ---
[address] [address] Transthoracic Echocardiogram Report Name: ARNAUD HEALY Age: 82 yrs Gender: Female : 1935 Patient Status: Inpatient Patient Location: [address] [place] [address] Study Date: 06/15/2018 05:28 PM Height: 63 in Weight: 177 lb BSA: 1.8 m2 Procedure: A complete two-dimensional transthoracic echocardiogram was performed (2D, M-mode, spectral and color flow Doppler). The study was technically difficult with many images being suboptimal in quality. Reason For Study: Possible TIA Ordering Physician: ETHAN STODDARD Performed By: Mariel De Luna Interpretation Summary The left ventricular ejection fraction is normal. There is mild concentric left ventricular hypertrophy. The left ventricle is grossly normal size. Doppler measurements suggest pseudonormalized left ventricular relaxation, which is associated with grade II/IV or mild to moderate diastolic dysfunction Wall motion cannot be accurately commented on, but no definite regional wall motion abnormalities noted. The right ventricle is mildly dilated. The right ventricular systolic function is normal. The right atrium is mildly dilated. The left atrial size is normal. There is a mild to moderate amount of mitral regurgitation There is no mitral valve stenosis. No aortic regurgitation is present. There is no aortic valve stenosis No tricuspid regurgitation. There is no tricuspid stenosis. The aortic root is not well visualized. The inferior vena cava was not well visualized There is no pericardial effusion. Possible A FIB, correlate with EKG and rhythm strip Consider ASHVIN if clinically indicated. May consider mobile cardiac telemetry monitoring (MCT) for ruling out transient AFIB. MMode/2D Measurements & Calculations RVDd: 2.0 cm LVIDd: 4.1 cm FS: 32.4 % Ao root diam: 2.5 cm IVSd: 1.2 cm LVIDs: 2.8 cm EDV(Teich): 75.1 ml Ao root area: 5.1 cm2 LVPWd: 1.1 cm ESV(Teich): 29.2 ml LA dimension: 3.5 cm EF(Teich): 61.2 % Doppler Measurements & Calculations MV E max jim: MV P1/2t max jim: Ao V2 max: LV V1 max P.8 cm/sec 103.8 cm/sec 105.1 cm/sec 3.3 mmHg MV P1/2t: 39.6 msec Ao max PG: LV V1 mean PG: MVA(P1/2t): 5.6 cm2 4.4 mmHg 2.1 mmHg MV dec slope: Ao V2 mean: LV V1 max: 81.6 cm/sec 91.3 cm/sec 767.5 cm/sec2 Ao mean PG: LV V1 mean: MV dec time: 0.26 sec 2.8 mmHg 66.7 cm/sec Ao V2 VTI: 18.4 cmLV V1 VTI: 15.5 cm TV V2 max: PA V2 max: TR max jim: MV P1/2t-pr_phl: 107.2 cm/sec 108.6 cm/sec 179.8 cm/sec 42.7 msec TV max PG: PA max P.7 mmHg TR max P.6 mmHg 12.9 mmHg Left Ventricle The left ventricle is grossly normal size. There is mild concentric left ventricular hypertrophy. The left ventricular ejection fraction is normal. Doppler measurements suggest pseudonormalized left ventricular relaxation, which is associated with grade II/IV or mild to moderate diastolic dysfunction. Wall motion cannot be accurately commented on, but no definite regional wall motion abnormalities noted. Right Ventricle The right ventricle is mildly dilated. The right ventricular systolic function is normal. Atria The right atrium is mildly dilated. The left atrial size is normal. Interarterial septum not well visualized and not well dopplered. Cannot comment on ASD/PFO presence. Mitral Valve There is mild mitral leaflet calcification. There is mild mitral annular calcification. There is no mitral valve stenosis. There is a mild to moderate amount of mitral regurgitation. Aortic Valve The aortic valve is not well visualized secondary to technical limitations. There is no aortic valve stenosis. No aortic regurgitation is present. Tricuspid Valve The tricuspid valve is not well visualized, but is grossly normal. There is no tricuspid stenosis. No tricuspid regurgitation. Pulmonic Valve The pulmonic valve is not well visualized. Great Vessels The aortic root is not well visualized. The inferior vena cava was not well visualized. Effusions There is no pericardial effusion. Incidental Findings No definite cardiac source of CVA/TIA noted on this particular trans-thoracic study. Consider ASHVIN if clinically indicated. May consider mobile cardiac telemetry monitoring (MCT) for ruling out transient AFIB. : ETHAN STODDARD > Aaron Stone
[2018-06-15] MEDS: AMLODIPINE BESYLATE 5 MG TABLET PO SCH (21:17)
[2018-06-15] MEDS: FERROUS SULFATE 325 MG TABLET PO SCH (21:17)
[2018-06-16] MEDS: LEVOTHYROXINE SODIUM 0.025 MG TABLET PO SCH (06:05)
[2018-06-16] MEDS: LANSOPRAZOLE 30 MG TAB.RAP.DR PO SCH (06:05)
[2018-06-16] MEDS: GABAPENTIN 400 MG CAPSULE PO SCH (06:05)
--- NOTE | 2018-06-16 08:02 | PDOC DISCHARGE SUMMARY ---
General - Admit/Disc Date/PCP Admission Date/Primary Care Provider: 06/14/18 14:49 JUNE PONCE MD Discharge Date: 06/16/18 - Discharge Diagnosis (1) Right facial numbness Is this a current diagnosis for this admission?: Yes (2) Left carotid bruit Is this a current diagnosis for this admission?: Yes (3) Chronic atrial fibrillation Is this a current diagnosis for this admission?: Yes (4) Congestive heart failure Is this a current diagnosis for this admission?: Yes (5) Coronary artery disease Is this a current diagnosis for this admission?: Yes (6) Hyperlipidemia Is this a current diagnosis for this admission?: Yes (7) Hypertension Is this a current diagnosis for this admission?: Yes (8) Type 2 diabetes mellitus Is this a current diagnosis for this admission?: Yes - Additional Information Resuscitation Status: Full Code Prescriptions: Aspirin [Ecotrin 81 mg EC Tablet] 81 mg PO DAILY #30 tabec Home Medications: Amlodipine Besylate [Norvasc 5 mg Tablet] 5 mg PO QHS 06/14/18 Clopidogrel Bisulfate [Plavix 75 mg Tablet] 75 mg PO DAILY 06/14/18 Fenofibrate 54 mg PO QAM 06/14/18 Ferrous Sulfate [Feosol 325 mg Tablet] 325 mg PO QHS 06/14/18 Furosemide [Lasix 40 mg Tablet] 40 mg PO QAM 06/14/18 Gabapentin [Neurontin 400 mg Capsule] 400 mg PO Q8 06/14/18 Insulin Aspart Protam & Aspart [Novolog Mix 70-30 Vial] 20 unit SQ QPM 06/14/18 Levothyroxine Sodium [Synthroid 0.025 mg Tablet] 25 mcg PO Q6AM 06/14/18 Linagliptin [Tradjenta] 5 mg PO QAM 06/14/18 [place]-3 Fatty Acids/Fish Oil [[place] 3 Fish Oil Softgel] 2 each PO BID 06/14/18 Pantoprazole Sodium [Protonix] 40 mg PO QPM 06/14/18 Polyethylene Glycol 3350 [Miralax Powder 17 gm/Packet] 1 packet PO BID 06/14/18 Potassium Chloride [Klor-Con 10 Meq Capsule ER] 10 meq PO Q12 06/14/18 Psyllium Husk (with Sugar) [Metamucil Packet] 3.4 gm PO BID 06/14/18 Red Yeast Rice 600 mg PO QHS 06/14/18 Rosuvastatin Calcium [Crestor 10 mg Tablet] 10 mg PO QPM 06/14/18 Aspirin [Ecotrin 81 mg EC Tablet] 81 mg PO DAILY #30 tabec 06/16/18 History of Present Illness Patient complains of: Facial numbness History of Present Illness: ARNAUD HEALY is a 82 year old female patient of Dr June Ponce who presented to the ED with complain of new onset numbness around her mouth, face and lower extremities. She has extensive history of CVA events and was on Coumadin therapy with home monitoring until about 5 days ago when it was discontinued to allow for PCI with stent placement 2 days ago. Patient was discharged home on both Plavix and Coumadin and she reported taking 10 mg of Coumadin last night. She denied any palpitation or irregular heart beat. No headache or dizziness. She reported persistence of her numbness during her ED stay. At the time of my bedside evaluation she was able to self feed and claimed improvement to her diana -oral numbness but continue to experience some numbness in both legs but less intense. Her morbidities include CHF, Chronic Atrial fibrillation, Hypertension , CAD, Left Carotid artery stenosis, hyperlipidemia, type 2 diabetes, hypothyroidism, GERD, and osteoarthritis. Hospital Course Hospital Course: Patient was admitted to observation [facility] bed further evaluation of her complaints. She was managed with Plavix and Ecotrin. I discussed case with Dr Earl, pulp bleacher at [facility] regarding use of Coumadin along with dual anti platelet therapy. i was agreed upon to maintain on dual anti platelet therapy at this time due to recent drug eluting stent placement. Her CT and MRI brain scans were negative for any significant acute pathologic process. Her carotid doppler evaluation revealed bilateral plaque without hemodynamically significant stenosis. Her TTE evaluation was unrevealing for possible source of cardiac emboli. Patient will follow up at [facility] as earlier scheduled after her recent PCI procedure. She will be discharged home today and follow up with Dr. Ponce as instructed upon discharge. Physical Exam Vital Signs: Temp Pulse Resp BP Pulse Ox 97.5 F 56 L 16 127/69 H 96 06/16/18 03:23 06/16/18 06:48 06/16/18 03:23 06/16/18 03:23 06/16/18 03:23 Intake & Output 06/15/18 06/16/18 06/17/18 06:59 06:59 06:59 Intake Total 705 1190 Output Total 2800 Balance 705 -1610 Weight 80.6 kg 81.9 kg Physical Exam: General appearance: PRESENT: no acute distress, well-developed, well-nourished Head exam: PRESENT: atraumatic, normocephalic Eye exam: PRESENT: conjunctiva pink, EOMI, PERRLA. ABSENT: sclera icterus Ear exam: PRESENT: normal external ear exam Mouth exam: PRESENT: moist Respiratory exam: PRESENT: clear to auscultation amparo Cardiovascular exam: PRESENT: irregular rhythm, +S1, +S2 Vascular exam: PRESENT: normal capillary refill. ABSENT: pallor GI/Abdominal exam: PRESENT: normal bowel sounds, soft. ABSENT: distended, guarding, mass, organomegaly, rebound, tenderness Extremities exam: ABSENT: pedal edema Musculoskeletal exam: PRESENT: deformity - related to her multiple joints involvement with arthritis Neurological exam: PRESENT: alert, awake, oriented to person, oriented to place , oriented to time, oriented to situation, CN II-XII grossly intact. ABSENT: motor sensory deficit Psychiatric exam: PRESENT: appropriate affect, normal mood. ABSENT: homicidal ideation, suicidal ideation Skin exam: PRESENT: dry, intact, warm. ABSENT: cyanosis, rash Results Laboratory Results: 06/15/18 04:23 06/15/18 04:23 Impressions: Chest X-Ray 06/14/18 00:00 IMPRESSION: No acute cardiopulmonary disease suggested. Findings as above. Head CT 06/14/18 00:00 IMPRESSION: Mild chronic changes. No acute intracranial abnormality. Attempted to report findings as CRITICAL RESULT to RAIZA ALMEIDA MD at10:05 on 06/14/2018 without success. . Category of Critical Result: Stroke alert. EVIDENCE OF ACUTE STROKE: NO. Head MRI 06/14/18 00:00 IMPRESSION: 1. Chronic appearing changes. No acute abnormality. EVIDENCE OF ACUTE STROKE: NO. Carotid Doppler Study 06/15/18 08:00 IMPRESSION: 1. NO HEMODYNAMICALLY SIGNIFICANT STENOSIS. 2. No significant interval changes since the prior study dated 04/29/2016. Qualifiers - * PATIENT BEING DISCHARGED WITH ANY OF THE FOLLOWING DIAGNOSIS: Stroke Stroke Pt being discharged on Anti-thrombolytic therapy?: Yes Stroke Pt being discharged on Anti-coagulation therapy?: No Reason(s) for not prescribing Anti-coagulation therapy:: Contraindicated Stroke Pt being discharged on Statins?: Yes Plan Discharge Plan: She will be discharged home today and follow up with Dr. Ponce as instructed upon discharge. She will follow up at [facility] as earlier arranged.
[2018-06-16] MEDS: FUROSEMIDE 40 MG TABLET PO SCH (08:05)
[2018-06-16] MEDS: FENOFIBRATE NANOCRYSTALLIZED 48 MG TABLET PO SCH (08:05)
[2018-06-16 08:20] VITALS: BP 130/61
[2018-06-16] MEDS: INSULIN LISPRO 100 UNIT/ML 3 ML VIAL SUBCUT PRN (08:49)
[2018-06-16] MEDS: POLYETHYLENE GLYCOL 3350 POWDER 17 GM/1 PACKET PO SCH (09:04)
[2018-06-16] MEDS: ASPIRIN 81 MG TABLET, ENT COATED PO SCH (09:04)
[2018-06-16] MEDS: PSYLLIUM SEED-SF 5.85 GM PACKET PO SCH (09:04)
[2018-06-16] MEDS: POTASSIUM CHLORIDE 10 MEQ CAPSULE.ER PO SCH (09:04)
[2018-06-16] MEDS: CLOPIDOGREL BISULFATE 75 MG TABLET PO SCH (09:04)
[2018-06-16] MEDS: OMEGA-3 ACID ETHYL ESTERS 1 GM CAPSULE PO SCH (09:04)
[2018-06-16] MEDS: ENOXAPARIN SODIUM INJ 40 MG/0.4 ML DISP.SYRIN SUBCUT SCH (09:05)
[2018-06-16] MEDS: SITAGLIPTIN PHOSPHATE 50 MG TABLET PO SCH (09:11)
== END 2018-06-16 09:40 | disposition home or self-care (01) ==
LOC: ER 09:37 → EH 14:49 → UNDOADMOB 14:49 → 3W 17:22
PROVIDERS: ADMIT Internal Medicine Geriatric Medicine; ATTEND Internal Medicine Geriatric Medicine
DX: R20.0 Anesthesia of skin (principal); R09.89 Other specified symptoms and signs involving the circulatory and respiratory systems; I48.2 Chronic atrial fibrillation; I11.0 Hypertensive heart disease with heart failure; I50.42 Chronic combined systolic (congestive) and diastolic (congestive) heart failure; I25.10 Atherosclerotic heart disease of native coronary artery without angina pectoris; E78.5 Hyperlipidemia, unspecified; E11.8 Type 2 diabetes mellitus with unspecified complications; E03.9 Hypothyroidism, unspecified; M15.9 Polyosteoarthritis, unspecified; E78.49 Other hyperlipidemia; I65.22 Occlusion and stenosis of left carotid artery; I25.2 Old myocardial infarction; Z79.82 Long term (current) use of aspirin; Z79.899 Other long term (current) drug therapy; Z79.02 Long term (current) use of antithrombotics/antiplatelets; Z95.5 Presence of coronary angioplasty implant and graft; Z87.01 Personal history of pneumonia (recurrent); Z79.4 Long term (current) use of insulin
CPT/HCPCS: 93005; 99285; 36415 ×2; 82553; 82962 ×3; 82550; 85025 ×2; 85610; 85730; 80053 ×2; 81001; 84484; 83036; 80061; 93306; 93880; 70551; 71045; 70450; 93010; G0378 ×3; A9270 ×28; J3490 ×3; J1650 ×2; J1815

== ENCOUNTER 2018-06-22 15:15 | Emergency (ER) | payer MEDICARE, OTHER ==
[2018-06-22] MEDS ORDERED: ACETAMINOPHEN 325 MG TABLET PO ONE (16:29)
--- NOTE | 2018-06-22 16:29 | ER Document Report ---
ED General - General Chief Complaint: Head Injury Stated Complaint: FALL/HEAD INJURY Time Seen by Provider: 06/22/18 16:18 Notes: Patient is a 82-year-old female, with history of atrial fibrillation, on Coumadin, Plavix and aspirin that presents to the emergency department for chief complaint of head injury. Patient reports that at around 1 PM today, she was by her washing machine, and stood up rather quickly, and hit her head on a shelf that was above it. She did not lose consciousness, she has had a headache around the area where she hit her ahead. She currently rates that headache as a 4 out of 10, describes as an aching sensation, in the left frontal aspect of her head, where she did bruise her head. She is on Coumadin, she reports her last INR was 1.6, that was performed last week. She denies any numbness, weakness or tingling, nausea, vomiting or blurred vision. She denies any fall associated, and denies having any neck pain associated. Past Medical History: Hypertension, atrial fibrillation, CAD, hyperlipidemia Past Surgical History: PCI with stenting Social History: Denies current tobacco, alcohol or illicit drug use Family History: Reviewed and noncontributory for presenting illness Allergies: Reviewed, see documented allergy list. REVIEW OF SYSTEMS: Other than noted above, the 12 point review of systems was reviewed with the patient and were negative, all pertinent findings are included in the HPI. PHYSICAL EXAMINATION: Vital signs reviewed, nursing noted reviewed. GENERAL: Elderly female and in no acute distress. HEAD: Small hematoma over the left anterior scalp, mild tenderness to palpation , no step-off or deformity, measures approximately 2 cm x 2 cm., normocephalic. EYES: Eyes appear normal, extraocular movements intact, sclera anicteric, conjunctiva are normal. ENT: nares patent, oropharynx clear without exudates. Moist mucous membranes. NECK: Normal range of motion, supple without lymphadenopathy, no midline tenderness LUNGS: Breath sounds clear to auscultation bilaterally and equal. No wheezes rales or rhonchi. HEART: Regular rate and rhythm without murmurs ABDOMEN: Soft, nontender, normoactive bowel sounds. No rebound, guarding, or rigidity. No masses appreciated. EXTREMITIES: Nontender, good range of motion, no pitting or edema. NEUROLOGICAL: No focal neurological deficits. Moves all extremities spontaneously Motor and sensory grossly intact on exam. PSYCH: Normal mood, normal affect. SKIN: Warm, Dry, normal turgor, no rashes or lesions noted on exposed skin TRAVEL OUTSIDE OF THE [place] IN LAST 30 DAYS: No - Related Data Allergies/Adverse Reactions: iodine [Iodine] Allergy (Intermediate, Verified 12/05/17 10:25) RASH atorvastatin [From Lipitor] Allergy (Verified 12/05/17 10:25) Penicillins Allergy (Verified 12/05/17 10:25) hands itching, rash atorvastatin calcium [From Lipitor] Adverse Reaction (Intermediate, Verified 11/19 10:25) MUSCLE SPASMS morphine [Morphine] Adverse Reaction (Intermediate, Verified 12/05/17 10:25) FEELS LIKE DYING Past Medical History - Social History Smoking Status: Never Smoker Chew tobacco use (# tins/day): No Drug Abuse: None Family History: Reviewed & Not Pertinent Patient has suicidal ideation: No Patient has homicidal ideation: No - Past Medical History Cardiac Medical History: Reports: Hx Atrial Fibrillation, Hx Congestive Heart Failure, Hx Coronary Artery Disease - STENT PLACED X5, Hx Heart Attack - X5, Hx Hypercholesterolemia, Hx Hypertension Pulmonary Medical History: Reports: Hx Pneumonia - 5-6 YEARS AGO, Hx Sleep Apnea Neurological Medical History: Reports: Hx Cerebrovascular Accident Endocrine Medical History: Reports: Hx Diabetes Mellitus Type 2 Renal/ Medical History: Denies: Hx Peritoneal Dialysis GI Medical History: Reports: Hx Gastroesophageal Reflux Disease, Hx Hiatal Hernia. Denies: Hx Pancreatitis Musculoskeletal Medical History: Reports Hx Arthritis, Reports Hx Muscle Weakness - cramps Past Surgical History: Reports: Hx Abdominal Surgery - hernia, Hx Appendectomy, Hx Cardiac Catheterization - stent in circumflex, Hx Cardiac Surgery - stent x6 , Hx Cholecystectomy, Hx Herniorrhaphy, Hx Hysterectomy, Hx Orthopedic Surgery - carpal tunnel - Immunizations Immunizations up to date: Yes Hx Diphtheria, Pertussis, Tetanus Vaccination: No - unknown Hx Pneumococcal Vaccination: 08/04/08 Physical Exam - Vital signs Vitals: Temp Pulse Resp BP Pulse Ox 98.7 F 85 14 157/73 H 96 06/22/18 15:25 06/22/18 15:25 06/22/18 15:25 06/22/18 15:25 06/22/18 15:25 Course - Re-evaluation Re-evalutation: Patient seen and examined vital signs reviewed. CT of the patient's head was ordered given that she is on Coumadin and Plavix, with head injury Patient was treated with acetaminophen p.o. Results were reviewed when available and demonstrated negative head CT The patient was re-evaluated and was improved Evaluation was most consistent with closed head injury, on anticoagulants, without intracranial hemorrhage Results were discussed with the patient at this point, after careful consideration I feel that that patient can be discharged from the emergency department, the patient was educated treatments and reasons to return to the emergency department based on their presumed diagnosis as noted above, they were advised to followup with a primary care physician in 2-3 days. Patient was agreeable to plan of care. *Note is created using voice recognition software and may contain spelling, syntax or grammatical errors. Head CT 06/22/18 16:28 IMPRESSION: CHRONIC CHANGES OF ATROPHY AND MICROVASCULAR ISCHEMIA. MILD LEFT- SIDED SCALP SWELLING. NO FRACTURE. NO ACUTE PROCESS. EVIDENCE OF ACUTE STROKE: NO. - Vital Signs Vital signs: Temp Pulse Resp BP Pulse Ox 98.3 F 74 14 151/75 H 97 06/22/18 17:07 06/22/18 17:07 06/22/18 15:25 06/22/18 17:07 06/22/18 17:07 Discharge - Discharge Clinical Impression: Closed head injury Qualifiers: Encounter type: initial encounter Qualified Code(s): S09.90XA - Unspecified injury of head, initial encounter Condition: Stable Disposition: HOME, SELF-CARE Instructions: Head Injury Precautions ([facility]) Referrals: KRISTOFER MACK PA [NO LOCAL MD] - Follow up in 3-5 days
--- NOTE | 2018-06-22 16:54 | RADIOLOGY REPORT (SQ) ---
EXAM DESCRIPTION: CT HEAD WITHOUT COMPLETED DATE/TIME: 06/22/2018 4:43 pm REASON FOR STUDY: closed head injury, on coumadin COMPARISON: 06/14/2018. TECHNIQUE: Axial images acquired through the brain without intravenous contrast. Images reviewed wi th bone, brain and subdural windows. Additional sagittal and coronal reconstructions were generated. Images stored on PACS. All CT scanners at this facility use dose modulation, iterative reconstruction, and/or weight based d osing when appropriate to reduce radiation dose to as low as reasonably achievable (ALARA). [facility]: Dose Right [facility]: CareDose [facility]: Dose Right [facility]: Teradose 4D [facility]: [employer] RADIATION DOSE: CT Rad equipment meets quality standard of care and radiation dose reduction techniq ues were employed. CTDIvol: 53.2 mGy. DLP: 991 mGy-cm.mGy. LIMITATIONS: None. FINDINGS: VENTRICLES: Prominent. CEREBRUM: No masses. No hemorrhage. No midline shift. Areas of low density in the white matter mos t likely due to chronic micro-vascular ischemic change. No evidence for acute infarction. CEREBELLUM: No masses. No hemorrhage. No alteration of density. No evidence for acute infarction. EXTRAAXIAL SPACES: Age-related involutional change. No fluid collections. No masses. ORBITS AND GLOBE: No intra- or extraconal masses. Normal contour of globe without masses. CALVARIUM: No fracture. PARANASAL SINUSES: No fluid or mucosal thickening. SOFT TISSUES: Mild left-sided scalp swelling. OTHER: No other significant finding. IMPRESSION: CHRONIC CHANGES OF ATROPHY AND MICROVASCULAR ISCHEMIA. MILD LEFT-SIDED SCALP SWELLING. NO FRACTURE. NO ACUTE PROCESS. EVIDENCE OF ACUTE STROKE: NO. TECHNICAL DOCUMENTATION: JOB ID: [id number] Quality ID # [id number]: Final reports with documentation of one or more dose reduction techniques (e.g., Au tomated exposure control, adjustment of the mA and/or kV according to patient size, use of iterative reconstruction technique) 2010 [employer]- All Rights Reserved Reading location - IP/workstation name: [email or web address]
[2018-06-22 17:09] VITALS: BP 151/75
== END 2018-06-22 17:09 | disposition home or self-care (01) ==
LOC: ER 15:15
DX: S09.90XA Unspecified injury of head, initial encounter (principal); W22.8XXA Striking against or struck by other objects, initial encounter; Z79.01 Long term (current) use of anticoagulants; Z79.02 Long term (current) use of antithrombotics/antiplatelets; I48.91 Unspecified atrial fibrillation; I10 Essential (primary) hypertension; I25.10 Atherosclerotic heart disease of native coronary artery without angina pectoris
CPT/HCPCS: 99283; 70450; A9270

== ENCOUNTER 2018-12-03 10:20 | Emergency (ER) | payer MEDICARE, OTHER ==
[2018-12-03] MEDS ORDERED: ASPIRIN 81 MG TABLET, CHEWABLE PO ONE (11:10)
--- NOTE | 2018-12-03 11:12 | ER Document Report ---
ED Medical Screen (RME) - General Chief Complaint: Chest Pain Stated Complaint: CHEST PAIN Time Seen by Provider: 12/03/18 11:06 Primary Care Provider: ZACKERY NEELY MD [Primary Care Provider] - Follow up as needed Mode of Arrival: Ambulatory Information source: Patient TRAVEL OUTSIDE OF THE [place] IN LAST 30 DAYS: No - HPI Patient complains to provider of: CHEST PAIN Notes: 12/03/18 11:11 Patient here with complaints of chest pain. This started this morning around 8:00. Patient has a history of A. fib, she is on Coumadin. She has a history of multiple cardiac stents. States that the pain right now is mainly in her back and rated a 2. No fever, no cough. No recent long trips or surgeries, no leg pain or leg swelling, no cancer, no history of DVT or PE. Exam No distress, nontoxic-appearing. Heart irregular with systolic murmur. Lungs clear and equal throughout. Plan CBC, CMP, CPK, CK-MB, troponin, PT/INR, EKG, chest x-ray, saline lock. An initial examination was made on the patient as part of the triage process, and it was determined a more comprehensive evaluation was necessary. Initial labs were ordered and patient was transferred to another provider in the ED who assumed care and finished evaluation and plan. - Related Data Allergies/Adverse Reactions: iodine [Iodine] Allergy (Intermediate, Verified 12/05/17 10:25) RASH atorvastatin [From Lipitor] Allergy (Verified 12/05/17 10:25) Penicillins Allergy (Verified 12/05/17 10:25) hands itching, rash atorvastatin calcium [From Lipitor] Adverse Reaction (Intermediate, Verified 12/05/17 10:25) MUSCLE SPASMS morphine [Morphine] Adverse Reaction (Intermediate, Verified 12/05/17 10:25) FEELS LIKE DYING Past Medical History - Past Medical History Cardiac Medical History: Reports: Hx Atrial Fibrillation, Hx Congestive Heart Failure, Hx Coronary Artery Disease - STENT PLACED X5, Hx Heart Attack - X5, Hx Hypercholesterolemia, Hx Hypertension Pulmonary Medical History: Reports: Hx Pneumonia - 5-6 YEARS AGO, Hx Sleep Apnea Neurological Medical History: Reports: Hx Cerebrovascular Accident Endocrine Medical History: Reports: Hx Diabetes Mellitus Type 2 Renal/ Medical History: Denies: Hx Peritoneal Dialysis GI Medical History: Reports: Hx Gastroesophageal Reflux Disease, Hx Hiatal Hernia. Denies: Hx Pancreatitis Musculoskeltal Medical History: Reports Hx Arthritis, Reports Hx Muscle Weakness - cramps Past Surgical History: Reports: Hx Abdominal Surgery - hernia, Hx Appendectomy, Hx Cardiac Catheterization - stent in circumflex, Hx Cardiac Surgery - stent x6, Hx Cholecystectomy, Hx Herniorrhaphy, Hx Hysterectomy, Hx Orthopedic Surgery - carpal tunnel - Immunizations Immunizations up to date: Yes Hx Diphtheria, Pertussis, Tetanus Vaccination: No - unknown History of Influenza Vaccine for 05/2017 - 10/2017 Season: Yes Physical Exam - Vital signs Vitals: Temp Pulse Resp BP Pulse Ox 98 F 95 18 156/77 H 96 12/03/18 10:29 12/03/18 10:29 12/03/18 10:29 12/03/18 10:29 12/03/18 10:29 Course - Vital Signs Vital signs: Temp Pulse Resp BP Pulse Ox 98 F 95 18 156/77 H 96 12/03/18 10:29 12/03/18 10:29 12/03/18 10:29 12/03/18 10:29 12/03/18 10:29 Doctor's Discharge - Discharge Referrals: ZACKERY NEELY MD [Primary Care Provider] - Follow up as needed
[2018-12-03 11:41] LABS: ABSOLUTE EOSINOPHILS # (AUTO) 0.1 10^3/uL (0.0-0.6); ABSOLUTE LYMPHOCYTES (AUTO) 1.2 10^3/uL (0.5-4.7); ABSOLUTE MONOCYTES (AUTO) 0.6 10^3/uL (0.1-1.4); ABSOLUTE NEUT (AUTO) 4.8 10^3/uL (1.7-8.2); BASOPHILS % (AUTO) 0.4 % (0-2); HEMATOCRIT 42.8 % (36.0-47.0); HEMOGLOBIN 14.7 g/dL (12.0-15.5); MEAN CORPUSCULAR HEMOGLOBIN 31.6 pg (27.0-33.4); MEAN CORPUSCULAR HGB CONC 34.3 g/dL (32.0-36.0); MEAN CORPUSCULAR VOLUME 92 fl (80-97); MONOCYTES % (AUTO) 8.5 % (3-13); PLATELET COUNT 192 10^3/uL (150-450); RED BLOOD COUNT 4.65 10^6/uL (3.72-5.28); RED CELL DISTRIBUTION WIDTH 13.2 % (11.5-14.0); SEGMENTED NEUTROPHILS % (AUTO) 72.1 % (42-78); TOTAL CELLS COUNTED % (AUTO) 100 %; WHITE BLOOD COUNT 6.7 10^3/uL (4.0-10.5)
[2018-12-03 11:48] LABS: INTERNATIONAL RATION (INR) 2.06; PROTHROMBIN TIME 24.2 SEC (11.4-15.4)
--- NOTE | 2018-12-03 11:55 | ER Document Report ---
ED General - General Chief Complaint: Chest Pain Stated Complaint: CHEST PAIN Time Seen by Provider: 12/03/18 11:06 Primary Care Provider: ZACKERY NEELY MD [Primary Care Provider] - Follow up as needed Mode of Arrival: Ambulatory TRAVEL OUTSIDE OF THE [place] IN LAST 30 DAYS: No - HPI Notes: Patient is an 83-year-old female with a history of type 2 diabetes, hypertension, A. fib (on Coumadin), coronary artery disease with stent placement (most recent one year ago), arthritis who presents to the emergency department complaining of having a sharp sternal chest pain at 0800 that would radiate to her back. Patient states that the pain lasted for about 5 minutes and has since improved. Patient states that she does have some mild shortness of breath which is not common for her. She otherwise has been able to eat and drink without difficulty. She is urinating normally and having normal bowel movements. Denies any headache, fever, neck pain, URI, sore throat, palpitations, syncope, cough, wheeze, abdominal pain, nausea/vomiting/diarrhea, urinary retention, dysuria, hematuria, loss of control of bowel or bladder, numbness/tingling, saddle anesthesia, muscle paralysis/weakness, or rash. - Related Data Allergies/Adverse Reactions: iodine [Iodine] Allergy (Intermediate, Verified 12/05/17 10:25) RASH atorvastatin [From Lipitor] Allergy (Verified 12/05/17 10:25) Penicillins Allergy (Verified 12/05/17 10:25) hands itching, rash atorvastatin calcium [From Lipitor] Adverse Reaction (Intermediate, Verified 12/05/17 10:25) MUSCLE SPASMS morphine [Morphine] Adverse Reaction (Intermediate, Verified 12/05/17 10:25) FEELS LIKE DYING Past Medical History - General Information source: Patient - Social History Smoking Status: Former Smoker Family History: Reviewed & Not Pertinent Patient has suicidal ideation: No Patient has homicidal ideation: No - Past Medical History Cardiac Medical History: Reports: Hx Atrial Fibrillation, Hx Congestive Heart Failure, Hx Coronary Artery Disease - STENT PLACED X5, Hx Heart Attack - X5, Hx Hypercholesterolemia, Hx Hypertension Pulmonary Medical History: Reports: Hx Pneumonia - 5-6 YEARS AGO, Hx Sleep Apnea Neurological Medical History: Reports: Hx Cerebrovascular Accident Endocrine Medical History: Reports: Hx Diabetes Mellitus Type 2 Renal/ Medical History: Denies: Hx Peritoneal Dialysis GI Medical History: Reports: Hx Gastroesophageal Reflux Disease, Hx Hiatal Hernia. Denies: Hx Pancreatitis Musculoskeletal Medical History: Reports Hx Arthritis, Reports Hx Muscle Weakness - cramps Past Surgical History: Reports: Hx Abdominal Surgery - hernia, Hx Appendectomy, Hx Cardiac Catheterization - stent in circumflex, Hx Cardiac Surgery - stent x6, Hx Cholecystectomy, Hx Herniorrhaphy, Hx Hysterectomy, Hx Orthopedic Surgery - carpal tunnel - Immunizations Immunizations up to date: Yes Hx Diphtheria, Pertussis, Tetanus Vaccination: No - unknown Hx Pneumococcal Vaccination: 08/04/08 Review of Systems - Review of Systems -: Yes All other systems reviewed and negative Physical Exam - Vital signs Vitals: Temp Pulse Resp BP Pulse Ox 98 F 95 18 156/77 H 96 12/03/18 10:29 12/03/18 10:29 12/03/18 10:29 12/03/18 10:29 12/03/18 10:29 - Notes Notes: PHYSICAL EXAMINATION: GENERAL: Well-appearing, well-nourished and in no acute distress. HEAD: Atraumatic, normocephalic. EYES: Pupils equal round and reactive to light, extraocular movements intact, sclera anicteric, conjunctiva are normal. ENT: Nares patent and without discharge. oropharynx clear without exudates. No tonsilar hypertrophy or erythema. Moist mucous membranes. NECK: Normal range of motion, supple without lymphadenopathy LUNGS: Breath sounds clear to auscultation bilaterally and equal. No wheezes rales or rhonchi. HEART: IRR ABDOMEN: Soft, nontender, nondistended abdomen. No guarding, no rebound. No masses appreciated. Normal bowel sounds present. No CVA tenderness bilaterall y. Musculoskeletal: FROM to passive/active. Strength 5+/5. Arik neg. No asymmetry to LE's. Extremities: Trace-1+ pitting edema b/l LE's. Peripheral pulses 1+ equal b/l UE/LE's. Capillary refill less than 3 seconds. NEUROLOGICAL: Normal speech, normal gait. PSYCH: Normal mood, normal affect. SKIN: Warm, Dry, normal turgor, no rashes or lesions noted. Course - Re-evaluation Re-evalutation: 12/03/18 13:10 I called her primary care provider, Dr. Neely, who would like a second cardiac enzyme performed and if it is negative she can follow-up in his office tomorrow. 12/03/18 15:25 Patient is an afebrile, well-hydrated 83-year-old female who presents to the ED with resolved atypical chest pain, unspecified. Vitals are acceptable without any significant tachycardia, tachypnea, or hypoxia. PE is otherwise unremarkab le. Patient is nontoxic-appearing and is tolerating p.o. without any difficulties. Pt is currently asymptomatic. CBC, CMP, EKG/cardiac enzymes 2, BNP (baseline), chest x-ray are all unremarkable for any acute pathology. Patient does not have any chest pain, dyspnea, or shortness of breath. Pat arash's presentation and symptomatology creates lower suspicion for ACS, PE, pneumothorax, pericarditis, dissection, respiratory compromise, severe dehydration, sepsis, meningitis, or other systemic emergent condition at this time. Patient is aware that this condition can change from initial presentation and she needs to monitor symptoms closely and seek medical attention for any acute changes. Pt is feeling better and would like to go home. As reviewed with Dr. Neely, above, he is okay with discharge and f/u tomorrow in his office. Recommend conservative measures for symptoms. Return to the ED with any worsening/concerning symptoms otherwise as reviewed in discharge. Patient is in agreement. - Vital Signs Vital signs: Temp Pulse Resp BP Pulse Ox 98 F 95 22 H 145/71 H 96 12/03/18 10:29 12/03/18 10:29 12/03/18 15:03 12/03/18 15:03 12/03/18 15:03 - Laboratory Result Diagrams: 12/03/18 11:22 12/03/18 11:22 Laboratory results interpreted by me: 12/03/18 12/03/18 12/03/18 11:22 11:22 11:22 PT 24.2 H Carbon Dioxide 31 H Glucose 263 H NT-Pro-B Natriuret Pep 1100 H Discharge - Discharge Clinical Impression: Atypical chest pain Condition: Stable Disposition: HOME, SELF-CARE Instructions: Chest Pain of Unclear Cause ([facility]) Additional Instructions: Maintain adequate fluid and food intake Take home medications as directed healthy diet Monitor blood pressure daily and keep a log Monitor symptoms for any acute changes Recheck with your PCM tomorrow Consider a follow-up with cardiology Return to the ED with any worsening symptoms and/or development of fever, headache, chest pain, palpitations, syncope, shortness of breath, trouble breathing, abdominal pain, n/v/d, blood in stool/urine, loss of control of bowel/bladder, urinary retention, muscle weakness/paralysis, numbness/tingling, or other worsening symptoms that are concerning to you. Forms: Elevated Blood Pressure Referrals: ZACKERY NEELY MD [Primary Care Provider] - Follow up tomorrow
--- NOTE | 2018-12-03 12:00 | RADIOLOGY REPORT (SQ) ---
EXAM DESCRIPTION: CHEST SINGLE VIEW COMPLETED DATE/TIME: 12/03/2018 11:33 am REASON FOR STUDY: CHEST PAIN COMPARISON: AP chest 06/14/2018, 04/23/2017 EXAM PARAMETERS: NUMBER OF VIEWS: One view. TECHNIQUE: Single frontal radiographic view of the chest acquired. RADIATION DOSE: NA LIMITATIONS: None. FINDINGS: LUNGS AND PLEURA: No opacities, masses or pneumothorax. No pleural effusion. MEDIASTINUM AND HILAR STRUCTURES: No masses. Contour normal. HEART AND VASCULAR STRUCTURES: Heart normal in size. Normal vasculature. BONES: No acute findings. HARDWARE: Clips right upper quadrant post cholecystectomy. OTHER: No other significant finding. IMPRESSION: NO ACUTE RADIOGRAPHIC FINDING IN THE CHEST. TECHNICAL DOCUMENTATION: JOB ID: [id number] [employer]- All Rights Reserved Reading location - IP/workstation name: [email or web address]
[2018-12-03 12:06] LABS: ALANINE AMINOTRANSFERASE 25 U/L (9-52); ALBUMIN 4.1 g/dL (3.5-5.0); ALKALINE PHOSPHATASE 74 U/L (38-126); ANION GAP 11 (5-19); ASPARTATE AMINO TRANSFERASE 28 U/L (14-36); BILIRUBIN,DIRECT 0.2 mg/dL (0.0-0.4); BILIRUBIN,TOTAL 0.7 mg/dL (0.2-1.3); BLOOD UREA NITROGEN 19 mg/dL (7-20); CALCIUM 9.7 mg/dL (8.4-10.2); CARBON DIOXIDE 31 mmol/L (22-30); CHLORIDE 99 mmol/L (98-107); CREATINE KINASE 69 U/L (30-135); GLUCOSE 263 mg/dL (75-110); POTASSIUM 4.7 mmol/L (3.6-5.0); SODIUM 140.8 mmol/L (137-145)
[2018-12-03 12:19] LABS: TROPONIN I < 0.012 ng/mL
[2018-12-03 15:46] VITALS: BP 140/75
--- NOTE | 2018-12-03 23:16 | EKG REPORT ---
SEVERITY:- ABNORMAL ECG - ATRIAL FIBRILLATION VENTRICULAR PREMATURE COMPLEX CONSIDER ANTEROSEPTAL INFARCT : Confirmed by: Aaron Stone 03-Dec-2018 23:16:07
== END 2018-12-03 15:46 | disposition home or self-care (01) ==
LOC: ER 10:20
DX: R07.89 Other chest pain (principal); R06.02 Shortness of breath; I10 Essential (primary) hypertension; I48.91 Unspecified atrial fibrillation; Z79.01 Long term (current) use of anticoagulants; R60.0 Localized edema; E11.9 Type 2 diabetes mellitus without complications; I25.10 Atherosclerotic heart disease of native coronary artery without angina pectoris; Z95.5 Presence of coronary angioplasty implant and graft; Z88.8 Allergy status to other drugs, medicaments and biological substances; Z88.0 Allergy status to penicillin; Z87.891 Personal history of nicotine dependence
CPT/HCPCS: 93005; 99285; 36415; 82553; 82550; 85025; 85610; 80053; 84484; 85379; 83880; 71045; 93010; A9270

== ENCOUNTER → 2019-04-07 | Outpatient (CLI) | payer MEDICARE ==
--- NOTE | 2019-04-08 10:43 | WOMENS IMAGING REPORT ---
EXAM DESCRIPTION: 3D SCREENING MAMMO BILAT COMPLETED DATE/TIME: 04/07/2019 11:45 am REASON FOR STUDY: Z12.31 ENCOUNTER FOR SCREENING MAMMOGRAM FOR MALIGNANT NEOPLASM OF BREAST Z12.31 ENCNTR SCREEN MAMMOGRAM FOR MALIGNANT NEOPLASM OF [place] COMPARISON: [id number] EXAM PARAMETERS: Standard craniocaudal and mediolateral oblique views of each breast recorded using digital acquisition and breast tomosynthesis. Read with the assistance of CAD. .[facility] - [place] [employer] Mid Level Practitioner Version 9.2 LIMITATIONS: None. FINDINGS: Findings present which are benign by mammographic criteria. No suspicious masses, calcific ations or architectural distortion. Pertinent benign findings: Stable calcifications. Benign mammographic findings may include one or more of the following: Smooth masses, popcorn/rim/coa rse calcifications, asymmetries, post-procedure changes, and lesions with long-standing stability. IMPRESSION: BENIGN MAMMOGRAPHIC FINDINGS. BIRADS 2 BREAST DENSITY: c. The breasts are heterogeneously dense, which may obscure small masses. BIRAD: ASSESSMENT: 2 BENIGN FINDING(S) RECOMMENDATION: ROUTINE SCREENING COMMENT: The patient has been notified of the results by letter per SA requirements. Additional no tification policies are in place for contacting patient with suspicious or incomplete findings. Quality ID #225: The [employer] recommends an annual screening mammogram for women aged 40 years or over. This facility utilizes a reminder system to ensure that all patients receive reminder letters, and/or direct phone calls for appointments. This includes reminders for routine scr eening mammograms, diagnostic mammograms, or other Breast Imaging Interventions when appropriate. Th is patient will be placed in the appropriate reminder system. TECHNICAL DOCUMENTATION: FINDING NUMBER: (1) ASSESSMENT: (1) JOB ID: [id number] [employer]- All Rights Reserved Reading location - IP/workstation name: [email or web address]
== END ==
LOC: WI 11:24
PROVIDERS: ATTEND Family Medicine
DX: Z12.31 Encounter for screening mammogram for malignant neoplasm of breast (principal)
CPT/HCPCS: 77063; 77067

== ENCOUNTER → 2020-01-18 | Outpatient (CLI) | payer MEDICARE ==
--- NOTE | 2020-01-18 14:32 | RADIOLOGY REPORT (SQ) ---
EXAM DESCRIPTION: CT HEAD WITHOUT IMAGES COMPLETED DATE/TIME: 01/18/2020 1:40 pm REASON FOR STUDY: RIGHT SIDED WEAKNESS (R53.1) R53.1 WEAKNESS COMPARISON: 06/22/2018 TECHNIQUE: Axial images acquired through the brain without intravenous contrast. Images reviewed wi th bone, brain and subdural windows. Additional sagittal and coronal reconstructions were generated. Images stored on PACS. All CT scanners at this facility use dose modulation, iterative reconstruction, and/or weight based d osing when appropriate to reduce radiation dose to as low as reasonably achievable (ALARA). [facility]: Dose Right [facility]: CareDose [facility]: Dose Right [facility]: Teradose 4D [facility]: Kibin RADIATION DOSE: CT Rad equipment meets quality standard of care and radiation dose reduction techniq ues were employed. CTDIvol: 48.6 mGy. DLP: 855 mGy-cm. mGy. LIMITATIONS: None. FINDINGS: VENTRICLES: Mildly prominent ventricles secondary to involutional atrophy. CEREBRUM: Mild cortical atrophy. No masses. No hemorrhage. No midline shift. No evidence for acut e infarction. Few scattered areas of low density in the white matter most likely chronic small vessel ischemic changes. CEREBELLUM: No masses. No hemorrhage. No alteration of density. No evidence for acute infarction. EXTRAAXIAL SPACES: No fluid collections. No masses. ORBITS AND GLOBE: No intra- or extraconal masses. Normal contour of globe without masses. CALVARIUM: No fracture. PARANASAL SINUSES: No fluid or mucosal thickening. SOFT TISSUES: No mass or hematoma. OTHER: No other significant finding. IMPRESSION: Mild involutional changes with mild chronic microvascular ischemia. No acute intracrani al imaging findings. EVIDENCE OF ACUTE STROKE: NO. COMMENT: Quality ID # 436: Final reports with documentation of one or more dose reduction techniques (e.g., Automated exposure control, adjustment of the mA and/or kV according to patient size, use of iterative reconstruction technique) TECHNICAL DOCUMENTATION: JOB ID: [id number] 2010 [employer]- All Rights Reserved Reading location - IP/workstation name: [email or web address]
== END ==
LOC: RAD 13:22
PROVIDERS: ATTEND Physician Assistant
DX: R53.1 Weakness (principal)
CPT/HCPCS: 70450

== ENCOUNTER → 2020-01-19 | Outpatient (CLI) | payer MEDICARE ==
--- NOTE | 2020-01-19 16:18 | RADIOLOGY REPORT (SQ) ---
EXAM DESCRIPTION: CAROTID DOPPLER IMAGES COMPLETED DATE/TIME: 01/19/2020 3:27 pm REASON FOR STUDY: RT SIDED WEAKNESS R53.1 WEAKNESS COMPARISON: CT brain 01/18/2020, 06/22/2018 Carotid Doppler 06/15/2018 MRI brain 06/14/2018 TECHNIQUE: Grayscale ultrasound, Doppler velocity and spectra, and color Doppler images acquired of the extra-cranial carotid and vertebral arteries. Images stored on PACS. LIMITATIONS: None. FINDINGS: RIGHT CAROTID CCA Velocities: Within normal limits. ICA Velocities Peak systolic 0.63 m/s. End diastolic 0.20 m/s. Proximal ICA/CCA peak systolic ratio 1.4. Mixed calcific and noncalcific plaque at the right carotid bifurcation. Just distal to shadowing, ve locities suggest less than 50% diameter narrowing proximal ICA LEFT CAROTID CCA Velocities: Within normal limits. ICA Velocities Peak systolic 0.85 m/s. End diastolic 0.23 m/s. Proximal ICA/CCA peak systolic ratio 1.5. Mixed calcific and noncalcific plaque at the left carotid bifurcation. Just distal to shadowing, jim ocities suggest less than 50% diameter narrowing proximal ICA VERTEBRAL ARTERIES: Antegrade flow. Normal waveforms. SUBCLAVIAN ARTERIES: Not evaluated OTHER: No other significant finding. IMPRESSION: NO HEMODYNAMICALLY SIGNIFICANT STENOSIS. COMMENT: Quality ID #195: Velocity criteria are extrapolated from the diameter data as defined by t he Society of Radiologists in Ultrasound Consensus Conference. Radiology 2003: 229; 340-346. TECHNICAL DOCUMENTATION: JOB ID: [id number] 2010 [employer]- All Rights Reserved Reading location - IP/workstation name: [email or web address]
== END ==
LOC: SP 07:32
PROVIDERS: ATTEND Physician Assistant
DX: R53.1 Weakness (principal)
CPT/HCPCS: 93880

== ENCOUNTER → 2020-05-10 | Outpatient (CLI) | payer MEDICARE ==
--- NOTE | 2020-05-10 14:22 | WOMENS IMAGING REPORT ---
EXAM DESCRIPTION: BILAT SCREENING MAMMO W/CAD IMAGES COMPLETED DATE/TIME: 05/10/2020 9:35 am REASON FOR STUDY: Z12.31 ENCOUNTER FOR SCREENING MAMMOGRAM FOR MALIGNANT NEOPLASM OF ATIGYGH84.31 E NCNTR SCREEN MAMMOGRAM FOR MALIGNANT NEOPLASM OF [place] COMPARISON: 04/07/2019, 04/01/2018, 04/01/2017 EXAM PARAMETERS: Standard craniocaudal and mediolateral oblique views of each breast recorded using digital acquisition. Read with the assistance of CAD. .[facility] - [employer] Version 9.2 LIMITATIONS: None. FINDINGS: RIGHT BREAST MASSES: No suspicious masses. CALCIFICATIONS: No new or suspicious calcifications. ARCHITECTURAL DISTORTION: None. ASYMMETRY: None noted. OTHER: No other significant findings. LEFT BREAST MASSES: No suspicious masses. CALCIFICATIONS: No new or suspicious calcifications. ARCHITECTURAL DISTORTION: None. ASYMMETRY: There appears to be a developing asymmetry within the lower breast seen on the MLO view on ly. OTHER: No other significant findings. IMPRESSION: A developing asymmetry within the lower breast seen on the MLO view only. 0 Incomplete: Needs Additional Imaging Evaluation and/or prior Mammograms for Comparison. BREAST DENSITY: c. The breasts are heterogeneously dense, which may obscure small masses. BIRAD: ASSESSMENT: 0 Incomplete: Needs Additional Imaging Evaluation and/or prior Mammograms for C omparison. RECOMMENDATION: RECOMMENDED FOLLOW-UP: Recommend spot compression in the MLO projection. Additional mammographic or sonographic imaging at the interpreting radiologist's discretion. The patient will be contacted for additional imaging. COMMENT: The patient has been notified of the results by letter per SA requirements. Additional no tification policies are in place for contacting patient with suspicious or incomplete findings. Quality ID #225: The [employer] recommends an annual screening mammogram for women aged 40 years or over. This facility utilizes a reminder system to ensure that all patients receive reminder letters, and/or direct phone calls for appointments. This includes reminders for routine scr eening mammograms, diagnostic mammograms, or other Breast Imaging Interventions when appropriate. Th is patient will be placed in the appropriate reminder system. TECHNICAL DOCUMENTATION: FINDING NUMBER: (1) ASSESSMENT: (1) JOB ID: [id number] 2010 [employer]- All Rights Reserved Reading location - IP/workstation name: [email or web address]
== END ==
LOC: WI 08:48
PROVIDERS: ATTEND Physician Assistant
DX: Z12.31 Encounter for screening mammogram for malignant neoplasm of breast (principal)
CPT/HCPCS: 77067

== ENCOUNTER → 2020-05-25 | Outpatient (CLI) | payer MEDICARE ==
--- NOTE | 2020-05-25 13:27 | WOMENS IMAGING REPORT ---
EXAM DESCRIPTION: LEFT DIAGNOSTIC MAMMO W/CAD; U/S BREAST UNILAT LIMITED IMAGES COMPLETED DATE/TIME: 05/25/2020 12:33 pm; 05/25/2020 1:05 pm REASON FOR STUDY: R92.8 OTHER ABNORMAL AND INCONCLUSIVE FINDINGS ON DIAGNOSTIC IMAGING OF [place]IL[place]NA; LT BR EAST R92.8 R92.8 OTH ABN AND INCONCLUSIVE FINDINGS ON DX IMAGING OF [place] COMPARISON: 05/10/2020, 04/07/2019, and 04/01/2018. EXAM PARAMETERS: True lateral and spot compression MLO and CC images acquired. LIMITATIONS: None. FINDINGS: BREAST LATERALITY: left MASSES: No suspicious masses. CALCIFICATIONS: No new or suspicious calcifications. ARCHITECTURAL DISTORTION: None. ASYMMETRY: Asymmetry in the inferior breast, similar density to the adjacent parenchyma. OTHER: No other significant findings. BREAST ULTRASOUND: TECHNIQUE: Static and dynamic grayscale images acquired of the inferior left breast. Selected color D oppler images recorded. ELASTOGRAPHY PERFORMED: No. LIMITATIONS: None. FINDINGS: MASS: No mass identified. Normal glandular tissue. ELASTOGRAPHY CHARACTERISTICS:Not applicable. OTHER: No other significant finding. IMPRESSION: Asymmetry in the inferior left breast has the appearance of parenchyma on mammography an d ultrasound. No worrisome findings. BREAST DENSITY: c. The breasts are heterogeneously dense, which may obscure small masses. BIRAD: ASSESSMENT: 2 Benign findings. RECOMMENDATION: RECOMMENDED FOLLOW UP: Birads 1 or 2: The patient should resume routine screening . SPECIFIC INTERVENTION/IMAGING/CONSULTATION RECOMMENDED:No additional intervention/ imaging/consultati on needed at this time. COMMUNICATION:The imaging findings were not discussed with the patient. Her referring provider has be en notified of the findings. COMMENT: The patient has been notified of the results by letter per SA requirements. Additional no tification policies are in place for contacting patient with suspicious or incomplete findings. Quality ID #225: The [employer] recommends an annual screening mammogram for women aged 40 years or over. This facility utilizes a reminder system to ensure that all patients receive reminder letters, and/or direct phone calls for appointments. This includes reminders for routine scr eening mammograms, diagnostic mammograms, or other Breast Imaging Interventions when appropriate. Th is patient will be placed in the appropriate reminder system. TECHNICAL DOCUMENTATION: FINDING NUMBER: (1) ASSESSMENT: (1) JOB ID: [id number] 2010 [employer]- All Rights Reserved Reading location - IP/workstation name: [email or web address]
== END ==
LOC: WI 12:07
PROVIDERS: ATTEND Physician Assistant
DX: N64.89 Other specified disorders of breast (principal)
CPT/HCPCS: 76642; 77065